=== PATIENT | male | born 1960 | race Caucasian/White ===

== ENCOUNTER 2018-06-26 13:55 | Observation (INO) | payer MEDICAID ==
[~2018-06-26] VITALS: Ht 170.2 cm; Wt 121.8 kg
--- NOTE | ~2018-06-26 | HEMODYNAMI ---
PATIENT:ALTON PARKS MEDICAL RECORD: [id number] : 58 [address] [id number] ADMISSION DATE: 06/26/18 Generatedon:06/27/201813:32 Patient name: ALTON PARKS Patient #: [id number] SSN: : 1960 Date of study: 06/27/2018 Page: Of Hemodynamic Procedure Report Patient Data Patient Demographics Procedure consent was obtained First Name: ALTON Gender: Male Last Name: CHARLY : 1960 Patient #: [id number] Age: 57 year(s) Race: Unknown Additional ID: [id number] Contact details Address: [address] [place], [place] [address] State: [place] City: [place] Zip code: [address] Past Medical History Allergies: No known allergies Admission Admission Data Admission Date: 06/26/2018 Admission Time: 18:38 Room #: 2118 Height (in.): 66.93 BSA: 2.29 (m2) Height (cm.): 170 BMI: 42.15 (kg/m2) Weight (lbs.): 268.52 Weight (kg.): 121.8 Lab Results Lab Result Date: 06/27/2018 Lab Result Time: 5:00 Biochemistry Name Units Result Min Max BUN mg/dl 40 --(----)-* 7 18 Creatinine mg/dl 1.9 --(----)-* 0.6 1.3 CBC Name Units Result Min Max Hematocrit % 32.6 *-(----)-- 42 54 Hemoglobin g/dl 11.9 *-(----)-- 13.5 17.5 Procedure Procedure Types Cath Procedure Diagnostic Procedure [facility] w/Coronaries Sedation Charges Moderate Sedation up to 15 minutes PCI Procedure Coronary Stent Coronary Stent Initial Peripheral Cath Diagnostic Procedure Help Desk Team Leader Peripheral Procedures Renal Arteriogram Procedure Description Procedure Date Procedure Date: 06/27/2018 Procedure Start Time: 13:03 Procedure End Time: 13:22 Procedure Staff Name Function Jimi Corado RN Nuclear Security Officer Vinod Jeffers RN Nurse Nash Fuentes MD Performing Physician Zia Peralta RT Monitor [facility] RT Scrub Procedure Data Cath Procedure Fluoroscopy Diagnostic fluoroscopy Total fluoroscopy Time: 4.9 time: 4.9 min min Diagnostic fluoroscopy Total fluoroscopy dose: 864 dose: 864 mGy mGy Contrast Material Contrast Material Type Amount (ml) Isovue 300 89 Entry Location Entry Primary Successful Side Size Upsize Upsize Entry Closure Succes sful Closure Location (Fr) 1 (Fr) 2 (Fr) Remarks Device Remarks Femoral Right 5 Fr 6 Fr Exoseal artery Short Estimated blood loss: 10 ml Diagnostic catheters Device Type Used For End Catheter Placement MULTIPACK Pigtail 5 Fr Procedure catheter MULTIPACK JL 4.0 5Fr Procedure catheter MULTIPACK 3DRC 5Fr Procedure catheter MULTIPACK 3DRC 5Fr Procedure catheter Procedure Complications No complications Procedure Medications Medication Administration Route Dosage Oxygen etCO2 Nasal cannula 2 l/min Lidocaine 2% added to field 20 Heparin Flush Bag added to field 2 bags (1000units/500ml NS) 0.9% NaCl I.V. 100 ml/hr Versed I.V. 2 mg Fentanyl I.V. 100 mcg Fentanyl I.V. 100 mcg Heparin Bolus I.V. 4000 units Integrilin (Bolus I.V. 11.3 ml 2mg/ml) Versed I.V. 1 mg Plavix P.O. 600 mg Hemodynamics Rest BSA: 2.29 (m2) HGB: 11.9 (g/dl) O2 Consumption: Estimated: 287.95 (ml/min) O2 Co nsumption indexed: Estimated:125.74 (ml/min/m) Heart Rate: 91 (bpm) Pressure Samples Time Site Value (mmHg) Purpose Heart Use Rate(bpm) 13:05 LV 113/5,8 Snapshot 80 Snapshots Pre Cath Intra NCS Post Cath Vital Signs Time Heart Resp SPO2 etCO2 NIBP (mmHg) Rhythm Pain Sedation Rate (ipm) (%) (mmHg) Status Level (bpm) 12:52:08 90 9 97 33 157/91(126) NSR 0 (11) 10(A) , No pain 12:56:30 92 18 95 25.5 133/90(104) NSR 0 (11) 10(A) , No pain 13:00:54 82 17 95 19.5 131/80(103) NSR 0 (11) 10(A) , No pain 13:05:18 80 11 98 30.8 135/82(105) NSR 0 (11) 10(A) , No pain 13:09:44 86 15 98 19.5 114/84(106) NSR 0 (11) 9(A) , No pain 13:13:58 86 12 97 30 121/87(102) NSR 0 (11) 9(A) , No pain 13:18:17 89 13 98 33 137/89(117) NSR 0 (11) 9(A) , No pain 13:22:43 88 16 98 36 127/87(101) NSR 0 (11) 10(A) , No pain Medications Time Medication Route Dose Verified Delivered Reason Notes Effectiveness by by 12:52:39 Oxygen etCO2 2 Nash Herreraie used for Nasal l/min Alfredo Jeffers RN procedure cannula 12:52:46 Lidocaine 2% added 20ml Nash Cao for local to vial Alfredo Fuentes MD anesthetic field 12:52:52 Heparin Flush added 2 Nash Nash used for Bag to bags Alfredo Fuentes MD procedure (1000units/500ml field NS) 12:53:01 0.9% NaCl I.V. 100 Nash Brock Per physician ml/hr Alfredo Jeffers RN 13:00:44 Versed I.V. 2 mg Nash Brock for sedation Alfredo Jeffers RN 13:00:50 Fentanyl I.V. 100 Nash Brock for sedation mcg Alfredo Jeffers RN 13:06:16 Fentanyl I.V. 100 Nash Brock for sedation mcg Alfredo Jeffers RN 13:09:20 Heparin Bolus I.V. 4000 Nash Brock for verif ied units Alfredo Jeffers RN anticoagulation with dr fuentes 13:11:24 Integrilin I.V. 11.3 Nash Brock for waste d (Bolus 2mg/ml) ml Alfredo Jeffers RN antiplatelet 8.7 ml therapy of vial 13:16:38 Versed I.V. 1 mg Nash Brock for sedation Alfredo Jeffers RN 13:22:51 Plavix P.O. 600 Nash Brock for mg Alfredo Jeffers RN hypertension Procedure Log Time Note 12:26:20 Patient Height : 66.93 inches 12:26:26 Patient Weight : 268.52 lbs 12:26:59 Jimi Corado RN sent for patient. Start room use. 12::01 Signed procedure consent form obtained from patient. 12::02 Diagnostic Cath status Elective 12:34:40 Time tracking: Regular hours (M-F 7:00 - 5:00) 12:34:43 Plan of Care:Hemodynamics will remain stable., Cardiac rhythm will remain stable., Comfort level will be maintained., Respiratory function will remain adequate., Patient/ family verbilizes understanding of procedure., Procedure tolerated without complication., Recovers from procedure without complications.. 12:34:49 Patient received from Med II to CCL 1 Alert and oriented. Tansferred to table in Supine position. 12:34:50 Warm blankets applied, and avila hugger turned on for patient comfort. 12:34:51 ECG and BP/O2 sat monitors applied to patient. 12:34:51 Correct patient and procedure confirmed by team. 12:34:53 Pre-op teaching completed and patient verbalized understanding. 12:34:53 Pre-procedure instructions explained to patient. 12:34:54 Family in waiting room. 12:34:55 Patient NPO since Midnight. 12:35:02 Patient allergic to No known allergies 12:35:06 Is the patient allergic to Iodine/contrast media? No. 12:35:07 Is patient on blood thinner?Yes 12:35:09 ACC The patient was administered the following blood thiners within the last 24 hours: ACCPlavix 12:35:11 Patient diabetic? No. 12:35:13 Previous problem with sedation/anesthesia? No ? 12:35:15 Snore? Yes 12:35:16 Sleep apnea? Yes 12:35:17 Opens mouth fully? Yes 12:35:17 Deviated septum? No 12:35:18 Sticks out tongue? Yes 12:35:21 Airway obstruction? No ? 12:35:23 Dentures? No ? 12:49:48 Pre procedure: right dorsailis pedis pulse 2+ Normal; easily identifiable; not easily obliterated 12:49:50 Modified Harjit's test Ulnar > 7 seconds. 12:49:53 Patient pain scale 0/10 ?. 12:49:58 IV patent on arrival in right hand with 0.9% NaCl at [facility]. 12:50:24 Lab Result : Hemoglobin 11.9 g/dl 12:50:24 Lab Result : Hematocrit 32.6 % 12:50:24 Lab Result : BUN 40 mg/dl 12:50:24 Lab Result : Creatinine 1.9 mg/dl 12:50:26 Lab results completed and on chart. 12:50:29 Right groin area was prepped with chlora-prep and draped in sterile fashion 12:50:30 Sharps counted by scrub and verified by R.N. 12:50:30 Alarms reviewed by R. N. 12:50:32 Use device set Femoral Dx 12:50:33 ACIST Syringe (42415) opened to sterile field. 12:50:34 Medline Cath Pack ([id number]) opened to sterile field. 12:50:34 Bag Decanter (2002S) opened to sterile field. 12:50:35 ACIST Manifold (13654) opened to sterile field. 12:50:35 ACIST Hand Control (45429) opened to sterile field. 12:50:36 Tegaderm 4 x 4 (1626W) opened to sterile field. 12:50:37 DIAGNOSTIC Multipack 5Fr catheter set (IH5165) opened to sterile field. 12:50:38 DIAGNOSTIC WIRE .035 260cm J wire (253072) opened to sterile field. 12:50:40 SHEATH 5FR [place] (XNP342) opened to sterile field. 12:50:44 Vital chart was started 12:50:45 Baseline sample Acquired. 12:50:48 Rhythm: sinus rhythm 12:50:49 Full Disclosure recording started 12:52:39 Oxygen 2 l/min etCO2 Nasal cannula was administered by Vinod Jeffers RN; used for procedure; 12:52:46 Lidocaine 2% 20ml vial added to field was administered by Nash Fuentes MD; for local anesthetic; 12:52:52 Heparin Flush Bag (1000units/500ml NS) 2 bags added to field was administered by Nash Fuentes MD; used for procedure; 12:53:01 0.9% NaCl 100 ml/hr I.V. was administered by Vinod Jeffers RN; Per physician; 12:57:33 Final Timeout: patient, procedure, and site verified with staff and physician. All members of the team are in agreement. 12:57:33 --------ALL STOP TIME OUT------ 12:57:33 Physician arrived 12:57:35 Right groin site verified by team. 12:57:38 Fire Safety Assessment: A--An alcohol-based skin anteseptic being used preoperatively., C--Open oxygen or nitrous oxide is being used., D--An ESU, laser, or fiber-optic light is being used. 12:57:46 Physical assessment completed. ASA score P 2 - A patient with mild systemic disease as per Nash Fuentes MD. 12:57:49 Sedation plan: IV Moderate Sedation Medication:Versed, Fentanyl 13:00:44 Versed 2 mg I.V. was administered by Vinod Jeffers RN; for sedation; 13:00:50 Fentanyl 100 mcg I.V. was administered by Vinod Jeffers RN; for sedation; 13:03:33 Zero performed for pressure channel P1 13:03:47 Procedure started. 13:03:53 Local anesthetic to right femoral artery with Lidocaine 2% by Nash Fuentes MD.INITIAL ACCESS ONLY 13:04:05 A 5 Fr sheath was inserted into the Right Femoral artery 13:04:57 A MULTIPACK Pigtail 5 Fr catheter was advanced over the wire and used for Procedure. 13:05:05 LV gram done using BOBO 13:05:07 Injector settings: Ml/sec: 10, Volume: 20, 13:05:23 LV hemodynamics recorded. 13:05:26 EF : 60 % 13:05:29 Catheter exchanged over wire. 13:05:35 A MULTIPACK JL 4.0 5Fr catheter was advanced over the wire and used for Procedure. 13:06:04 LCA angiography performed. 13:06:16 Fentanyl 100 mcg I.V. was administered by Vinod Jeffers RN; for sedation; 13:07:03 Catheter exchanged over wire. 13:07:07 A MULTIPACK 3DRC 5Fr catheter was advanced over the wire and used for Procedure. 13:07:27 RCA angiography performed. 13:07:55 INFLATOR Merit BasixCompak (DQ6519) opened to sterile field. 13:07:55 CHOICE PT Extra Support 182cm wire ([id number]) opened to sterile field. 13:07:57 SHEATH 6FR [place] (TIY653) opened to sterile field. 13:08:00 Catheter removed. 13:08:07 Sheath upsized to a 6 Fr Short. 13:09:20 Heparin Bolus 4000 units I.V. was administered by Vinod Jeffers RN; for anticoagulation; verified with dr fuentes 13:09:39 GUIDE 6FR AR 2.0 SH catheter ([id number]) opened to sterile field. 13:10:37 6 Fr AR 2 SH guide catheter was inserted over the wire 13:10:44 CHOICE wire advanced. 13:10:46 Wire advanced across lesion. 13:11:24 Integrilin (Bolus 2mg/ml) 11.3 ml I.V. was administered by Vinod Jeffers RN; for antiplatelet therapy; wasted 8.7 ml of vial 13:12:27 Place stent Inflation Number: 1 A TANMAY RX 3.5 x 15 stent ([id number]) was prepped and advanced across the Dist RCA. The stent was deployed at 13 KAMERON for 0:10 (min:sec). 13:12:45 Inflation number: 1 The stent balloon was then re-inflated across the Mid RCA to 13 KAMERON for 0:10 (min:sec). 13:13:00 Stent catheter was removed intact over wire. 13:13:32 Place stent Inflation Number: 2 A TANMAY RX 3.5 x 15 stent ([id number]) was prepped and advanced across the Mid RCA. The stent was deployed at 15 KAMERON for 0:10 (min:sec). 13:14:36 Stent catheter was removed intact over wire. 13:15:29 Place stent Inflation Number: 1 A TANMAY RX 3.5 x 18 stent ([id number]) was prepped and advanced across the Prox RCA. The stent was deployed at 17 KAMERON for 0:10 (min:sec). 13:15:45 Stent catheter was removed intact over wire. 13:15:47 Wire removed. 13:15:48 Guide catheter removed. 13:16:03 A MULTIPACK 3DRC 5Fr catheter was advanced over the wire and used for Procedure. 13:16:38 Versed 1 mg I.V. was administered by Vinod Jeffers RN; for sedation; 13:17:36 Right renal angiography performed. 13:17:38 Left renal angiography performed. 13:17:49 Catheter removed. 13:17:56 EXOSEAL 6Fr (EX600) opened to sterile field. 13:18:04 Sheath removed intact; hemostasis achieved with Exoseal to the Right Femoral artery. 13:18:06 Procedure ended.(Physican Out) 13:18:23 Fluoroscopy time 04.90 minutes. 13:18:27 Fluoroscopy dose: 864 mGy 13:18: Flurop Dose total: 864 13:19:35 Contrast amount:Isovue 300 89ml. 13:19:38 Sharps counted by scrub and verified by R.N. 13:19:40 Insertion/operative site no bleeding no hematoma. 13:19:42 Post-op/insertion site Right Femoral artery dressed using a 4 x 4 and Tegaderm. 13:19:46 Post right femoral artery:stable, soft, clean and dry 13:19:47 Post Procedure Pulses reassessed and unchanged 13:19:49 Post-procedure physical assessment completed. ASA score P 2 - A patient with mild systemic disease as per Nash Fuentes MD. 13:19:51 Post procedure rhythm: unchanged. 13:19:54 Estimated blood loss: 10 ml 13:20:23 Patient needs reinforcement of post procedure teaching. 13:20:23 Post procedure instruction explained to patient.Patient verbalizes understanding. 13:20:51 Procedure type changed to Cath procedure, Diagnostic procedure, LHC, LHC w/Coronaries, Sedation Charges, Moderate Sedation up to 15 minutes, PCI procedure, Coronary Stent, Coronary Stent Initial, Peripheral Cath Diagnostic Procedure, Help Desk Team Leader Peripheral Procedures, Renal Arteriogram 13:22:15 Procedure and supply charges have been captured, reviewed, submitted and are correct. 13:22:18 Procedure Complication : No complications 13:22:20 See physician's report for complete and final results. 13:22:20 Vital chart was stopped 13:22:22 Report given to Pre/Post Procedure Room. 13:22:24 Patient transfered to Pre/Post Procedure Room with Stretcher. 13:22:26 Full Disclosure recording stopped 13:22:26 Procedure ended. 13:22:30 End room use (Document Last) 13:22:51 Plavix 600 mg P.O. was administered by Vinod Jeffers RN; for hypertension; 13:31:45 Femstop placed over the right femoral artery at 147 mmHg. Hemostasis achieved. Intervention Summary Intervention Notes Time ActionType Lesion and Equipment Used Action# Pressure Duration Attributes 13:12:27 Place stent Dist RCA TANMAY RX 3.5 x 1 13 00:10 15 stent ([id number]) 13:12:45 Reinflate Mid RCA TANMAY RX 3.5 x 1 13 00:10 stent 15 stent balloon ([id number]) 13:13:32 Place stent Mid RCA TANMAY RX 3.5 x 2 15 00:10 15 stent ([id number]) 13:15:29 Place stent Prox RCA TANMAY RX 3.5 x 1 17 00:10 18 stent ([id number]) Device Usage Item Name Manufacture Quantity Catalog Number Hospital Part Current M inimal Lot# / Charge Number Stock Stock Serial# Code ACIST Syringe Acist 1 99592 404608 990862 473478 2 0 (23154) Medical Systems Inc Bag Decanter Microtek 1 2001S 982834 40732 000607 5 (2001S) Medical Inc. Medline Cath Medline 1 [id number] 419337 16736 333491 5 Pack ([id number]) ACIST Hand Acist 1 72104 820869 607006 968862 5 Control Medical (00229) Systems Inc ACIST Manifold Acist 1 21889 947811 861390 746067 5 (81102) Medical Systems Inc Tegaderm 4 x 4 3M 1 1626W 160494 003921 352326 5 (1626W) DIAGNOSTIC Cardinal 1 [id number] 881596 19867 013782 3 0 Multipack 5Fr Health catheter set (PU8813) DIAGNOSTIC St Hubert 1 704242 341268 172316 982800 3 0 WIRE .035 260cm J wire (502706) SHEATH 5FR Terumo 1 SVI314 370170 825230 234360 5 [place]anchester (USK183) MULTIPACK Cardinal 1 181688 5 Pigtail 5 Fr Health catheter MULTIPACK JL Cardinal 1 234823 5 4.0 5Fr Health catheter MULTIPACK 3DRC Cardinal 1 645886 5 5Fr catheter Health CHOICE PT Mayetta 1 [id number] 665205 277261 759283 5 Extra Support Scientific 182cm wire ([id number]) INFLATOR Merit Merit 1 QX0877 234880 322136 921845 1 5 Kang Hui Medical Instrument (OQ6137) SHEATH 6FR Terumo 1 HBC634 858801 466018 907967 4 0 Blanchester (UQR731) GUIDE 6FR AR Medtronic 1 [id number] 241977 93653 225701 1 2.0 SH catheter ([id number]) TANMAY RX 3.5 x Medtronic 2 [id number] 223123 6707715 914087 5 [id number] 15 stent [id number] ([id number]) TANMAY RX 3.5 x Medtronic 1 [id number] 703889 6384195 178288 5 [id number] 18 stent ([id number]) EXOSEAL 6Fr Cardinal 1 EX600 598445 929526 757734 1 0 (EX600) Health Signature Audit [place] Stage Time Signature Unsigned Intra-Procedure 06/27/2018 Zia Peralta RT(R) 1:25:12 PM RT(R) 06/27/2018 1:30:14 PM Intra-Procedure 06/27/2018 Zia Peralta 1:31:57 PM RT(R) Signatures Monitor : Zia Peralta RT Signature : Date : Time : [facility] [address] [place] [address]
[2018-06-26] MEDS ORDERED: LASIX40 MG PO ×2 (14:16→21:02)
[2018-06-26] MEDS ORDERED: ZYLOPRIM300 MG PO (14:17)
[2018-06-26] MEDS ORDERED: PREDNISONE20 MG PO (14:17)
[2018-06-26] MEDS ORDERED: IBUPROFEN800 MG PO (14:17)
[2018-06-26] MEDS ORDERED: FLOMAX0.4 MG PO (14:19)
[2018-06-26] MEDS ORDERED: COCHICINE (14:19)
[2018-06-26] MEDS ORDERED: NEURONTIN 300300 MG PO (14:19)
[2018-06-26] MEDS ORDERED: LIPITOR20 MG PO (14:19)
[2018-06-26] MEDS ORDERED: OMEPRAZOLE20 M1 PO (14:20)
[2018-06-26] MEDS ORDERED: LISINOPRIL-HCT1 EAC8 PO (14:20)
[2018-06-26] MEDS ORDERED: ULTRAM50 MG PO (14:20)
[2018-06-26] MEDS ORDERED: K-DUR20 MEQ PO (14:21)
[2018-06-26] MEDS ORDERED: NORVASC5 MG PO (14:22)
[2018-06-26] MEDS ORDERED: ISORDIL40 MG PO (14:22)
[2018-06-26 14:53] LABS: BASOPHILS 0.8 % (0-2); EOSINOPHILS 6.7 % (0-7); HEMATOCRIT 35.8 % (42.0-54.0); HEMOGLOBIN 13.1 g/dL (13.5-17.5); LYMPHOCYTES 26.5 % (15-50); MCH 32.4 pg (26.0-34.0); MCHC 36.6 g/dL (31.0-37.0); MCV 88.6 fL (80.0-100.0); MEAN PLATELET VOLUME 8.9 fL (7.4-10.4); MONOCYTES 11.1 % (2-11); NEUTROPHILS 53.9 % (40-80); PLATELET COUNT 160 10x3/uL (130-400); RBC 4.04 10x6/uL (4.20-6.10); RDW 13.2 % (11.5-14.5); WBC 5.1 10x3/uL (4.8-10.8)
[2018-06-26 15:29] LABS: ALBUMIN 3.7 g/dL (3.4-5.0); ALKALINE PHOSPHATASE 75 U/L (46-116); ALT (SGPT) 71 U/L (10-68); BILIRUBIN - TOTAL 0.99 mg/dL (0.2-1.3); CALC OSMOLALITY 298 mosm/kg (275-300); CALCIUM 8.1 mg/dL (8.5-10.1); CARBON DIOXIDE 28.5 mmol/L (21.0-32.0); CHLORIDE - SERUM 101 mmol/L (98-107); CKMB 4.8 U/L (0.0-3.6); CREATINE KINASE 218 UL (21-232); CREATININE - SERUM 2.5 mg/dL (0.6-1.3); GLUCOSE 161 mg/dL (74-106); PRO BNP 24 pg/mL (0-125); PROTEIN - SERUM 6.8 g/dL (6.4-8.2); SODIUM 142 mmol/L (136-145); UREA NITROGEN 48 mg/dL (7-18); eGFR NON AFRICAN AMERICAN 28 mL/min (90-120)
[2018-06-26 15:59] LABS: POTASSIUM - SERUM 2.9 mmol/L (3.5-5.1); TROPONIN-I < 0.017 ng/mL (0.000-0.060)
--- NOTE | 2018-06-26 19:44 | NUR ---
REPORT RECEIVED FROM NIGEL BURNETT
[2018-06-26 20:00] VITALS: BP 135/75
--- NOTE | 2018-06-26 20:15 | NUR ---
ARRIVED TO FLOOR VIA WHEELCHAIR, ACCOMPANIED BY HOSPITAL STAFF AND . ORIENTED TO UNIT AND PLACED ON TELEMETRY. PLAN OF CARE DISCUSSED. CALL LIGHT IN REACH. SEE NURSE ASSESSMENT.
--- NOTE | 2018-06-26 20:54 | NUR ---
DR. GENET MUNOZ, AWAITING CALL BACK
[2018-06-26] MEDS ORDERED: LASIX80 MG PO (21:03)
[2018-06-26 22:11] VITALS: BMI 42.1
[2018-06-26 23:13] LABS: CKMB 3.4 U/L (0.0-3.6); CREATINE KINASE 196 UL (21-232); TROPONIN-I 0.016 ng/mL (0.000-0.060)
[2018-06-27 00:50] VITALS: BP 118/87
--- NOTE | 2018-06-27 04:00 | NUR ---
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 WILL CONTINUE WITH PLAN OF CARE.
[2018-06-27 05:15] LABS: HEMATOCRIT 32.6 % (42.0-54.0); HEMOGLOBIN 11.9 g/dL (13.5-17.5); LYMPHOCYTES 27.6 % (15-50); MCH 32.6 pg (26.0-34.0); MCHC 36.5 g/dL (31.0-37.0); MCV 89.3 fL (80.0-100.0); MEAN PLATELET VOLUME 8.6 fL (7.4-10.4); NEUTROPHILS 60.6 % (40-80); PLATELET COUNT 155 10x3/uL (130-400); RBC 3.65 10x6/uL (4.20-6.10); RDW 13.9 % (11.5-14.5); WBC 4.1 10x3/uL (4.8-10.8)
[2018-06-27 05:35] VITALS: BP 150/89
[2018-06-27 05:35] LABS: CALC OSMOLALITY 300 mosm/kg (275-300); CALCIUM 7.7 mg/dL (8.5-10.1); CARBON DIOXIDE 25.5 mmol/L (21.0-32.0); CHLORIDE - SERUM 108 mmol/L (98-107); CREATINE KINASE 192 UL (21-232); CREATININE - SERUM 1.9 mg/dL (0.6-1.3); GLUCOSE 143 mg/dL (74-106); SODIUM 145 mmol/L (136-145); TROPONIN-I < 0.017 ng/mL (0.000-0.060); UREA NITROGEN 40 mg/dL (7-18); eGFR NON AFRICAN AMERICAN 39 mL/min (90-120)
[2018-06-27 05:36] LABS: POTASSIUM - SERUM 3.4 mmol/L (3.5-5.1)
--- NOTE | 2018-06-27 07:35 | NUR ---
ASSESSMENT DONE. DENIES NEEDS.
[2018-06-27 08:17] VITALS: BP 143/92
--- NOTE | 2018-06-27 10:47 | NUR ---
TELEMETRY SR 87. AT BS. CALL LIGHT IN REACH. WILL CONT. PLAN OF CARE.
--- NOTE | 2018-06-27 11:45 | NUR ---
REVIEWED AND AGREE WITH ASSESMENT.
[2018-06-27 12:00] VITALS: BP 139/83
--- NOTE | 2018-06-27 12:29 | NUR ---
TO CHEMICAL PROCESSING SUPERVISOR PER BED
--- NOTE | 2018-06-27 13:26 | HP ---
PATIENT: ALTON PARKS MEDICAL RECORD: [id number] ACCOUNT: [id number] LOCATION:[facility] D.2118 : 58 ADMISSION DATE: 06/26/18 PCP: NANCY DE LEÓN MD HISTORY AND PHYSICAL EXAMINATION DIAGNOSES: 1. Angina. 2. Renal insufficiency. 3. Hypertension. HISTORY OF PRESENT ILLNESS: This is a gentleman with only history of a cardiac catheterization in the past, but no history of cardiac intervention has been having increasing episodes of chest pain. He is followed by the [facility] at the [facility] in [place]. He was set for cardiac catheterization yesterday; however, they did not do this secondary to renal dysfunction. His creatinine was about approximately 2.3. He has been on over 100 mg of Lasix a day. He was clearly dehydrated. We hydrated him. His creatinine is now under 2. He continues to have episodes of chest pain. PHYSICAL EXAMINATION: GENERAL APPEARANCE: Well-nourished, well-developed, appears stated age. Level of distress, comfortable. PSYCHIATRIC: Mental status, alert, normal affect. Orientation, oriented to time, place and person. EYES: Lids and conjunctiva, noninjected. No discharge, no pallor. ENT: Lips, teeth, gums, normal dentition. Oropharynx, no cyanosis, no pallor. NECK: Carotid arteries, bilateral normal upstroke, no bruits, no thrills. JUGULAR VEINS: No jugular venous pressure or distention. CERVICAL LYMPH NODES: Nontender, nonenlarged. THYROID: Not enlarged. Nontender. No nodules. LUNGS: Respiratory effort, unlabored. CHEST: Normal curvature. No thoracic deformity. No chest wall tenderness. Percussion, resonant. Auscultation, clear. No wheezes, no rales, no rhonchi. CARDIOVASCULAR: Precordial exam, nondisplaced. No heaves or pericardial thrills. Rate and rhythm, regular. Heart sounds, normal S1, normal S2. No S3, no gallop, no rub. Systolic murmur, not heard. Diastolic murmur, not heard. EXTREMITIES: No cyanosis, no edema. Peripheral pulses, full and equal in all extremities, except as noted. No bruits appreciated. ABDOMEN: Soft, nondistended. Normal aorta. No bruit. Nontender. No masses. Liver, nontender, no hepatomegaly. Spleen, nontender, no splenomegaly. MUSCULOSKELETAL: No joint tenderness. No joint swelling. No erythema. NEUROLOGICAL: Normal gait, normal strength, normal tone. SKIN: Warm and dry. OVERALL IMPRESSION: Chest pain compatible with angina, renal insufficiency has markedly improved. We will proceed with coronary angiography. Further care depends upon findings of the angiography. TRANSINT:[id number] Voice Confirmation ID: [id number] DOCUMENT ID: [id number] HISTORY AND PHYSICAL [id number] ALTON PARKS, NANCY MACKENZIE at 1326 CC: [id number] DICTATION DATE: 06/27/18 0838 BACK SHOE CUTTER: 06/27/18 0904 ADM IN [facility] [address] [place] [address]
[2018-06-27] MEDS ORDERED: PLAVIX75 MG PO (13:41)
[2018-06-27] MEDS ORDERED: BAYER CHEWABLE81 MG PO (13:41)
--- NOTE | 2018-06-27 13:50 | NUR ---
FEMSTOP IN PLACE TO RIGHT GROIN. NO BLEEDING/HEMATOMA NOTED. RIGHT PEDAL PULSE PALPABLE.
--- NOTE | 2018-06-27 14:20 | NUR ---
VSS. RIGHT GROIN FEMSTOP IN PLACE. NO BLEEDING/HEMATOMA NOTED.
--- NOTE | 2018-06-27 14:34 | NUR ---
STARTED TO WEAN FEMSTOP. DECREASED PRESSURE TO 140mmHg. TOLERATING WELL. RIGHT PEDAL PULSE PALPABLE. FAMILY AT BEDSIDE
--- NOTE | 2018-06-27 14:50 | NUR ---
FEMSTOP DECREASED TO 120mmHg. TOLERATING WELL. NO BLEEDING/HEMATOMA NOTED. RIGHT PEDAL PULSE PALPABLE. VSS.
--- NOTE | 2018-06-27 15:05 | NUR ---
RIGHT GROIN FEMSTOP DECREASED TO 100mmHg. PT TOLERATING WELL. NO NEW BLEEDING/HEMATOMA NOTED. OLD HEMATOMA NOTED TO RIGHT GROIN MARKED. WILL MONITOR.
--- NOTE | 2018-06-27 15:17 | NUR ---
RIGHT GROIN FEMSTOP DEC TO 80mmHg. TOLERATING WELL. NO NEW BLEEDING/HEMATOMA NOTED. VSS. FAMILY AT BEDSIDE. DR. DE LEÓN ROUNED AND SPOKE WITH PT AND PT'S FAMILY.
--- NOTE | 2018-06-27 15:30 | NUR ---
FEMSTOP DEC TO 60 mmHg. TOLERATING WELL. NO NEW BLEEDING/HEMATOMA. VSS. RIGHT PEDAL PULSE PALPBALE.
--- NOTE | 2018-06-27 15:45 | NUR ---
FEMSTOP DEC TO 40mmHg. TOLERATING WELL. NO NEW BLEEDING/HEMATOMA NOTED. RIGHT PEDAL PULSE PALPABLE. VSS.
--- NOTE | 2018-06-27 15:56 | NUR ---
PT C/O ACHING PAIN IN BACK FROM LYING FLAT. WILL GIVE PAIN MEDICATION ORDERED.
--- NOTE | 2018-06-27 16:15 | NUR ---
FEMSTOP WEANED DOWN TO 20mmHg. TOLERATING WELL. VSS. NO NEW BLEEDING/HEMATOMA NOTED. PT REPORTS PAIN IS BETTER. RATES IT A 3/10.
--- NOTE | 2018-06-27 16:28 | NUR ---
FEMSTOP OFF AT THIS TIME. DRESSING APPLIED TO RIGHT GROIN. NO NEW BLEEDING/HEMATOMA NOTED. WILL MONITOR AND THEN START INCREASING HEAD OF BED TOLERATED.
--- NOTE | 2018-06-27 16:40 | NUR ---
RIGHT GROIN DRESSING C/D/I. NO S/S OF HEMATOMA NOTED. 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 PT'S AT BEDSIDE AND EDUCATED HER ON WHAT TO WATCH FOR IF PT DEVELOPS A HEMATOMA AT HOME. MARKED OLD BRUISE SITE. PT'S HEAD OF BED SLOWLY INCREASED TO 30 DEGREES. RIGHT GROIN IS STABLE. PT SET UP WITH SANDWICH TRAY AND DRINK.
--- NOTE | 2018-06-27 16:58 | NUR ---
PT TOLERATED SANDWICH AND DRINK. DENIES NAUSEA. RIGHT HAND PIV D/C'D WITH CATH TIP INTACT. PT TOLERATED WELL. PT INSTRUCTED TO GET UP TO SIDE OF BED AND GET DRESSED. PT'S AT BEDSIDE TO ASSIST.
--- NOTE | 2018-06-27 17:14 | NUR ---
DISCUSSED DISCHARGE INSTRUCTIONS WITH PT AND PT'S FAMILY. THEY VOICED UNDERSTANDING. PT TO COME BACK SATURDAY FOR CARDIAC STENTS. DISCUSSED WHAT TO DO PRIOR TO ARRIVAL AND WHAT TIME TO ARRIVE SATURDAY MORNING. THEY VOICED UNDERSTANDING.
--- NOTE | 2018-06-27 17:16 | NUR ---
PT TO RESTROOM. VOIDED WITHOUT DIFFICULTY. PT TAKEN OUT TO VEHICLE BY WHEELCHAIR. NO S/S OF DISTRESS NOTED. ALL BELONGINGS IN HAND.
[2018-06-30 09:04] VITALS: BP 148/89; Ht 170.2 cm; Wt 121.8 kg
--- NOTE | 2018-07-01 11:18 | DS ---
PATIENT:ALTON PARKS :58 MEDICAL RECORD: [id number] DISCHARGE SUMMARY ADMISSION DATE: 06/26/18 DISCHARGE DATE: 06/27/18 DATE OF SERVICE: 06/27/2018 DIAGNOSES: 1. Angina. 2. Percutaneous transluminal coronary angioplasty stent of right coronary artery this admission. 3. Hypertension. 4. Hyperlipidemia. 5. Renal insufficiency. HOSPITAL COURSE: This is a gentleman who presents with anginal symptomatology, found to have significant stenosis of the RCA, underwent successful PTCA stent of the RCA, discharged home with addition of aspirin and Plavix to his medical regimen. He will be brought back next week for PTCA stent of the LAD and circumflex. TRANSINT:[id number] Voice Confirmation ID: [id number] DOCUMENT ID: [id number] NANCY DE LEÓN MD at 1118 CC: [id number] DICTATION DATE: 06/27/18 1324 IMMIGRATION SERVICES OFFICER: 06/27/18 2342 DIS IN 06/27/18 [facility] [address] [place] [address]
--- NOTE | 2018-07-01 11:18 | OP ---
PATIENT NAME: ALTON PARKS MEDICAL RECORD: [id number] :58 LOCATION:[facility] ADMISSION DATE:06/26/18 SURGEON: NANCY DE LEÓN MD DATE OF OPERATION: 06/27/2018 ADDENDUM Bilateral selective renal angiography was performed. 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 No pressure damping at the ostium problem. The left renal artery is a solitary artery off the aorta with no significant pressure damping at the ostium. No significant renal artery stenosis. TRANSINT:[id number] Voice Confirmation ID: [id number] DOCUMENT ID: [id number] NANCY DE LEÓN MD at 1118 CC: [id number] DICTATION DATE: 06/27/18 1325 OPTOMETRY ASSISTANT: 06/27/18 211 DIS IN 06/27/18 [place] [id number] [place] [address]
--- NOTE | 2018-07-01 11:18 | OP ---
PATIENT NAME: ALTON PARKS MEDICAL RECORD: [id number] :58 LOCATION:[facility]03 ADMISSION DATE:06/26/18 SURGEON: NANCY DE LEÓN MD DATE OF OPERATION: 06/27/2018 PROCEDURES: 1. PTCA and stent to the RCA. 2. Left heart catheterization. 3. Selective coronary angiography. 4. Left ventriculogram. INDICATIONS: Angina and coronary artery disease. PROCEDURE IN DETAIL: After informed consent was obtained and after a detailed description of risks, benefits as well as alternative therapies, the patient elected to proceed with angiogram and angioplasty. The right femoral area was prepped and draped in normal sterile fashion. Right femoral artery was cannulated via modified Seldinger technique with placement of 6-Slovenian sheath. All catheters were exchanged through this sheath. FINDINGS: The left ventriculogram was performed in the standard 30-degree BOBO view reveals good cardiac wall motion throughout all segments. Overall ejection fraction estimated at 60%. SELECTIVE CORONARY ANGIOGRAPHY: 1. Left main has no significant angiographic disease. 2. Left anterior descending has a long area of at least 70% stenosis in the proximal vessel. 3. Left circumflex has a long area of at least 80% stenosis in the mid distal vessel. 4. Right coronary has 3 discrete 80% stenoses at the ostium, mid, and mid distal vessel. PTCA AND STENT OF THE RCA: Stents used were 3.5 x 15, 3.5 x 15, 3.5 x 18; all Musa stents. Result was 0% residual stenosis. OVERALL IMPRESSION: Successful percutaneous transluminal coronary angioplasty and stent of the RCA going from 80% initial stenosis times 3 to 0% residual. TRANSINT:[id number] Voice Confirmation ID: [id number] DOCUMENT ID: [id number] NANCY DE LEÓN MD at 1118 CC: [id number] DICTATION DATE: 06/27/18 1324 WIREWORKER SUPERVISOR: 06/27/182100 DIS IN 06/27/18 [place] [id number]
== END 2018-06-27 17:16 | disposition home or self-care (01) ==
LOC: D.ER 13:55 → D.M2 18:38 → D.CLR 18:38 → D.EDHOLD 18:38 → D.M2 18:38 → OBSVTIME 18:39 → D.M2 19:27 → D.CLR 06-27 14:11
PROVIDERS: Emergency Medicine; ADMIT Internal Medicine Interventional Cardiology
DX: I25.110 Atherosclerotic heart disease of native coronary artery with unstable angina pectoris (principal); I10 Essential (primary) hypertension; N28.9 Disorder of kidney and ureter, unspecified; E86.0 Dehydration

== ENCOUNTER 2018-06-30 08:32 | Outpatient (CLI) | payer MEDICAID ==
--- NOTE | ~2018-06-30 | HEMODYNAMI ---
PATIENT:ALTON PARKS MEDICAL RECORD: [id number] : 58 LOCATION:[facility] ADMISSION DATE: 06/30/18 Generatedon:06/30/201810:07 Patient name: ALTON PARKS Patient #: [id number] SSN: : 1960 Date of study: 06/30/2018 Page: Of Hemodynamic Procedure Report Patient Data Patient Demographics Procedure consent was obtained First Name: ALTON Gender: Male Last Name: CHARLY : 1960 Patient #: [id number] Age: 57 year(s) Race: Unknown Additional ID: [id number] Contact details Address: [facility] [address] State: [place] City: [place] Zip code: [address] Past Medical History Allergies: No known allergies Admission Admission Data Admission Date: 06/30/2018 Admission Time: 8:32 Lab Results Lab Result Date: 06/27/2018 Lab Result Time: 5:00 Biochemistry Name Units Result Min Max BUN mg/dl 40 --(----)-* 7 18 Creatinine mg/dl 1.9 --(----)-* 0.6 1.3 CBC Name Units Result Min Max Hematocrit % 32.6 *-(----)-- 42 54 Hemoglobin g/dl 11.9 *-(----)-- 13.5 17.5 Procedure Procedure Types Cath Procedure Diagnostic Procedure FFR/IVUS Intra-Coronary IVUS Initial Sedation Charges Moderate Sedation up to 15 minutes PCI Procedure Coronary Stent Coronary Stent Initial Procedure Description Procedure Date Procedure Date: 06/30/2018 Procedure Start Time: 9:56 Procedure End Time: 10:06 Procedure Staff Name Function Nash Fuentes MD Performing Physician Sandra Larson RT Monitor Colleen Al RT Scrub Shahrzad Benjamin RT Scrub Jessica Graves RN Nurse Procedure Data Cath Procedure Fluoroscopy Diagnostic fluoroscopy Total fluoroscopy Time: 2.1 time: 2.1 min min Diagnostic fluoroscopy Total fluoroscopy dose: 561 dose: 561 mGy mGy Contrast Material Contrast Material Type Amount (ml) Isovue 300 44 Entry Location Entry Primary Successful Side Size Upsize Upsize Entry Closure Succes sful Closure Location (Fr) 1 (Fr) 2 (Fr) Remarks Device Remarks Femoral Left 6 Fr Exoseal artery Short Estimated blood loss: 10 ml Procedure Complications No complications Procedure Medications Medication Administration Route Dosage 0.9% NaCl I.V. 100 ml/hr Oxygen etCO2 Nasal cannula 2 l/min Lidocaine 2% added to field 20 Heparin Flush Bag added to field 2 bags (1000units/500ml NS) Versed I.V. 2 mg Fentanyl I.V. 50 mcg Versed I.V. 2 mg Fentanyl I.V. 50 mcg Heparin Bolus I.V. 4000 units Hemodynamics Rest HGB: 11.9 (g/dl) Heart Rate: 90 (bpm) Snapshots Pre Cath Intra NCS Post Cath Vital Signs Time Heart Resp SPO2 etCO2 NIBP (mmHg) Rhythm Pain Sedation Rate (ipm) (%) (mmHg) Status Level (bpm) 9:35:22 94 13 98 33.5 186/124(161) NSR 0 (11) 10(A) , No pain 9:40:02 88 13 98 32.7 201/122(156) NSR 0 (11) 10(A) , No pain 9:44:43 94 14 98 33.4 179/101(147) NSR 0 (11) 10(A) , No pain 9:49:16 93 11 98 33.5 166/101(131) NSR 0 (11) 10(A) , No pain 9:53:48 95 15 96 29.6 161/96(124) NSR 0 (11) 10(A) , No pain 9:58:14 96 11 97 31.9 166/92(138) NSR 0 (11) 9(A) , No pain 10:03:50 95 11 98 37.2 154/94(118) NSR 0 (11) 10(A) , No pain Medications Time Medication Route Dose Verified Delivered Reason Notes Effectiveness by by 9:39:25 0.9% NaCl I.V. 100 Nash Obrienyla used for ml/hr Alfredo Graves die cleaner 9:39:32 Oxygen etCO2 2 Nash Jessica used for Nasal l/min Alfredo Grvaes procedure cannula RN 9:39:38 Lidocaine 2% added 20ml Nashray Cao for local to vial Alfredo Fuentes MD anesthetic field 9:39:43 Heparin Flush added 2 Nash Nash used for Bag to bags Alfredo Fuentes MD procedure (1000units/500ml field NS) 9:49:38 Versed I.V. 2 mg Nash Jessica for sedation Alfredo Graves RN 9:49:49 Fentanyl I.V. 50 Nash Jessica for sedation mcg Alfredo Graves RN 9:53:57 Versed I.V. 2 mg Nash Jessica for sedation Alfredo Graves RN 9:54:01 Fentanyl I.V. 50 Nash Jessica for sedation mcg Alfredo Graves RN 9:58:42 Heparin Bolus I.V. 4000 Nash Jessica for verifi ed units Alfredo Graves anticoagulation with Dr. LEX Fuentes Procedure Log Time Note 9:28:32 Diagnostic Cath Status : Elective 9:29:02 Sandra ROSAS(R) sent for patient. Start room use. 9:29:03 Time tracking: Regular hours (M-F 7:00 - 5:00) 9:29:07 Plan of Care:Hemodynamics will remain stable., Cardiac rhythm will remain stable., Comfort level will be maintained., Respiratory function will remain adequate., Patient/ family verbilizes understanding of procedure., Procedure tolerated without complication., Recovers from procedure without complications.. 9:29:26 Patient received from Pre/Post Procedure Room to CCL 2 Alert and oriented. Tansferred to table in Supine position. 9:29:28 Warm blankets applied, and avila hugger turned on for patient comfort. 9:29:28 Correct patient and procedure confirmed by team. 9:29:30 Signed procedure consent form obtained from patient. 9:29:32 ECG and BP/O2 sat monitors applied to patient. 9:32:41 Vital chart was started 9:32:42 Baseline sample Acquired. 9:32:46 Rhythm: sinus rhythm 9:32:48 Full Disclosure recording started 9:34:07 H&P Date Dictated: 06/30/2018 Within 30 days and on chart., H&P Addendum completed by physician on day of procedure. (MUST COMPLETE FOR ALL OUTPATIENTS). 9:34:08 Pre-procedure instructions explained to patient. 9:34:21 Family in waiting room. 9:34:24 Patient NPO since Midnight. 9:34:36 Patient allergic to No known allergies 9:34:39 Is the patient allergic to Iodine/contrast media? No. 9:34:45 Was the patient premedicated? Yes 9:34:46 Is patient on blood thinner?Yes 9:34:49 ACC The patient was administered the following blood thiners within the last 24 hours: ACCPlavix 9:34:51 Patient diabetic? No. 9:34:58 Snore? Yes 9:35:00 Sleep apnea? Yes 9:35:05 Deviated septum? No 9:35:07 Opens mouth fully? No 9:35:09 Sticks out tongue? Yes 9:35:18 Dentures? No ? 9:35:25 IV patent on arrival in left hand with 0.9% NaCl at [facility]. 9:35:36 Lab results completed and on chart. 9:35:41 Left groin area was prepped with chlora-prep and draped in sterile fashion 9:35:42 Alarms reviewed by R. N. 9:35:43 Sharps counted by scrub and verified by R.N. 9:38:00 Pre procedure: left dorsailis pedis pulse 0-Absent 9:39:25 0.9% NaCl 100 ml/hr I.V. was administered by Jessica Graves RN; used for procedure; 9:39:32 Oxygen 2 l/min etCO2 Nasal cannula was administered by Jessica Graves RN; used for procedure; 9:39:38 Lidocaine 2% 20ml vial added to field was administered by Nash Fuentes MD; for local anesthetic; 9:39:43 Heparin Flush Bag (1000units/500ml NS) 2 bags added to field was administered by Nash Fuentes MD; used for procedure; 9:47:39 Zero performed for pressure channel P1 9:48:41 Physician arrived 9:48:41 --------ALL STOP TIME OUT------ 9:48:46 Final Timeout: patient, procedure, and site verified with staff and physician. All members of the team are in agreement. 9:48:49 Left groin site verified by team. 9:48:55 Fire Safety Assessment: A--An alcohol-based skin anteseptic being used preoperatively., C--Open oxygen or nitrous oxide is being used., D--An ESU, laser, or fiber-optic light is being used. 9:48:59 Physical assessment completed. ASA score P 2 - A patient with mild systemic disease as per Nash Fuentes MD. 9:49:03 Sedation plan: IV Moderate Sedation Medication:Versed, Fentanyl 9:49:38 Versed 2 mg I.V. was administered by Jessica Graves RN; for sedation; 9:49:49 Fentanyl 50 mcg I.V. was administered by Jessica Graves RN; for sedation; 9:53:57 Versed 2 mg I.V. was administered by Jessica Graves RN; for sedation; 9:54:01 Fentanyl 50 mcg I.V. was administered by Jessica Graves RN; for sedation; 9:55:41 Use device set Femoral Dx 9:55:44 Procedure started. 9:56:05 Local anesthetic to left femerol artery with Lidocaine 2% by Nash uFentes MD.INITIAL ACCESS ONLY 9:56:14 A 6 Fr Short sheath was inserted into the Left Femoral artery 9:58:42 Heparin Bolus 4000 units I.V. was administered by Jessica Graves RN; for anticoagulation; verified with Dr. Fuentes 9:58:52 choice pt wire advanced. 9:59:37 GUIDE 6FR XBLAD 4.0 catheter ([id number]) opened to sterile field. 9:59:38 Fortuna [place] IVUS Catheter (17323U) opened to sterile field. 9:59:47 SHEATH 6FR [place] (BMD396) opened to sterile field. 9:59:52 INFLATOR Merit BasixCompak (GW1276) opened to sterile field. 10:00:21 Proceeding to intervention. 10:00:29 6 Fr XBLAD4 guide catheter was inserted over the wire 10:00:38 choice ptex wire advanced. 10:00:39 Wire advanced across lesion. 10:00:48 IVUS catheter advanced over wire. 10:00:49 IVUS catheter removed over wire. 10:01:32 Place stent Inflation Number: 1 A TANMAY RX 3.0 x 38 stent ([id number]) was prepped and advanced across the Mid LAD. The stent was deployed at 11 KAMERON for 0:12 (min:sec). 10:03:09 CHOICE PT Extra Support 182cm wire ([id number]) opened to sterile field. 10:03:11 ACIST Syringe (48150) opened to sterile field. 10:03:11 Bag Decanter (2002S) opened to sterile field. 10:03:12 Medline Cath Pack ([id number]) opened to sterile field. 10:03:13 DIAGNOSTIC WIRE .035 260cm J wire (067081) opened to sterile field. 10:03:15 ACIST Hand Control (54755) opened to sterile field. 10:03:16 ACIST Manifold (88517) opened to sterile field. 10:03:17 Tegaderm 4 x 4 (1626W) opened to sterile field. 10:03:28 EXOSEAL 6Fr (EX600) opened to sterile field. 10:03:35 Wire removed. 10:03:36 Guide catheter removed. 10:03:50 Sheath removed intact; hemostasis achieved with Exoseal to the Left Femoral artery. 10:03:54 Procedure ended.(Physican Out) 10:04:06 Fluoroscopy time 02.10 minutes. 10:04:14 Flurop Dose total: 561 10:04:14 Fluoroscopy dose: 561 mGy 10:04:19 Contrast amount:Isovue 300 44ml. 10:04:20 Sharps counted by scrub and verified by R.N. 10:04:23 Insertion/operative site no bleeding no hematoma. 10:04:27 Post-op/insertion site Left Femoral artery dressed using a 4 x 4 and Tegaderm. 10:04:34 Post-procedure physical assessment completed. ASA score P 2 - A patient with mild systemic disease as per Nash Fuentes MD. 10:04:40 Post procedure rhythm: unchanged. 10:04:43 Estimated blood loss: 10 ml 10:04:44 Post procedure instruction explained to patient.Patient verbalizes understanding. 10:05:24 Procedure type changed to Cath procedure, Diagnostic procedure, FFR/IVUS, Intra-Coronary IVUS Initial, Sedation Charges, Moderate Sedation up to 15 minutes, PCI procedure, Coronary Stent, Coronary Stent Initial 10:05:26 Procedure and supply charges have been captured, reviewed, submitted and are correct. 10:06:14 Procedure Complication : No complications 10:06:16 Vital chart was stopped 10:06:17 See physician's report for complete and final results. 10:06:19 Report given to Pre/Post Procedure Room. 10:06:28 Patient transfered to Pre/Post Procedure Room with Stretcher. 10:06:30 Procedure ended. 10:06:30 Full Disclosure recording stopped 10:06:33 End room use (Document Last) Intervention Summary Intervention Notes Time ActionType Lesion and Equipment Used Action# Pressure Duration Attributes 10:01:32 Place stent Mid LAD TANMAY RX 3.0 x 1 11 00:12 38 stent ([id number]) Device Usage Item Name Manufacture Quantity Catalog Number Hospital Part Current M inimal Lot# / Charge Number Stock Stock Serial# Code GUIDE 6FR Cardinal 1 [id number] [id number] 635461 314243 3 XBLAD 4.0 Health catheter ([id number]) Fortuna Fortuna 1 [id number] 053121 750862 788763 8 [place] IVUS Catheter (07405O) SHEATH 6FR Terumo 1 [id number] 880191 903474 626691 4 0 [place] (EZL033) INFLATOR Merit Merit 1 PW4418 961797 487714 453448 1 5 EvoleennmLGC Wireless Medical (ZL7899) TANMAY RX 3.0 x Medtronic 1 [id number] 810133 5564778 240120 5 [id number] 38 stent ([id number]) CHOICE PT [place] 1 [id number] 128016 122309 110847 5 Extra Support Scientific 182cm wire ([id number]) ACIST Syringe Acist 1 70709 977075 862413 229970 2 0 (04571) Medical Systems Inc Bag Decanter Microtek 1 2001S 687487 45935 367866 5 (2001S) Medical Inc. Medline Cath Medline 1 [id number] 537141 08124 123372 5 Pack ([id number]) DIAGNOSTIC [place] 1 026700 022376 367147 732910 3 0 WIRE .035 260cm J wire (147558) ACIST Hand Acist 1 95942 375906 396102 663718 5 Control Medical (53617) Systems Inc ACIST Manifold Acist 1 16358 862933 864772 307962 5 (06567) Medical Systems Inc Tegaderm 4 x 4 3M 1 1626W 068493 631714 571310 5 (1626W) EXOSEAL 6Fr Cardinal 1 EX600 465763 487440 136626 1 0 (EX600) Health Signature Audit [place] Stage Time Signature Unsigned Intra-Procedure 06/30/2018 Sandra Larson 10:07:21 AM RT(R) Signatures Monitor : Sandra Larson Signature : RT Date : Time : [place] [id number] [place] [id number]
[~2018-06-30 08:32] MED LIST: BAYER CHEWABLE81 MG PO; COCHICINE; FLOMAX0.4 MG PO; IBUPROFEN800 MG PO; ISORDIL40 MG PO; K-DUR20 MEQ PO; LASIX40 MG PO; LASIX80 MG PO; LIPITOR20 MG PO; LISINOPRIL-HCT1 EAC8 PO; NEURONTIN 300300 MG PO; NORVASC5 MG PO; OMEPRAZOLE20 M1 PO; PLAVIX75 MG PO; PREDNISONE20 MG PO; ULTRAM50 MG PO; ZYLOPRIM300 MG PO
[2018-06-30 09:18] LABS: BASOPHILS 0.9 % (0-2); EOSINOPHILS 8.8 % (0-7); HEMATOCRIT 32.6 % (42.0-54.0); HEMOGLOBIN 11.8 g/dL (13.5-17.5); IMMATURE GRANULOCYTES 1.2 % (0-5); MCH 31.9 pg (26.0-34.0); MCHC 36.2 g/dL (31.0-37.0); MCV 88.1 fL (80.0-100.0); MEAN PLATELET VOLUME 8.9 fL (7.4-10.4); MONOCYTES 6.7 % (2-11); NEUTROPHILS 62.4 % (40-80); PLATELET COUNT 147 10x3/uL (130-400); RDW 13.3 % (11.5-14.5); WBC 5.8 10x3/uL (4.8-10.8)
[2018-06-30 09:48] LABS: ANION GAP 17.3 mmol/L (8-16); CALCIUM 9.4 mg/dL (8.5-10.1); CREATININE - SERUM 1.5 mg/dL (0.6-1.3); POTASSIUM - SERUM 3.3 mmol/L (3.5-5.1)
--- NOTE | 2018-07-01 11:19 | OP ---
PATIENT NAME: ALTON PARKS MEDICAL RECORD: [id number] :58 LOCATION:D.CAT ADMISSION DATE: SURGEON: NANCY DE LEÓN MD DATE OF OPERATION: 06/30/2018 DATE OF SERVICE: 06/30/2018 PROCEDURES: 1. PTCA stent LAD. 2. Selective coronary angiography. INDICATION: Angina and coronary artery disease. PROCEDURE IN DETAIL: After informed consent was obtained and after a detailed description of the risks, benefits as well as alternative therapies, the patient elected to proceed with angiogram and angioplasty. The left femoral area was prepped and draped in normal sterile fashion. Left femoral artery was cannulated via modified Seldinger technique with placement of 6-Somali sheath. All catheters exchanged through this sheath. FINDINGS: The left circumflex is diffusely diseased, but there is no discrete flow-limiting stenosis. Left anterior descending has a long area of 80% stenosis confirmed by intravascular ultrasound through the proximal vessel. This was stented with a 3.0 x 38 mm Musa stent. Result was 0% residual stenosis. OVERALL IMPRESSION: Successful percutaneous transluminal coronary angioplasty stent of the left anterior descending going from greater than 80% initial stenosis to 0% residual. TRANSINT:[id number] Voice Confirmation ID: [id number] DOCUMENT ID: [id number] NANCY DE LEÓN MD at 1119 CC: [id number] DICTATION DATE: 06/30/18 1007 BASTING PULLER: 06/30/18 1040 DEP CLI 06/30/18 [place] [id number] [place] [id number]
== END 2018-06-30 14:20 | disposition home or self-care (01) ==
LOC: D.CATH 08:32
PROVIDERS: Internal Medicine Interventional Cardiology
DX: I25.119 Atherosclerotic heart disease of native coronary artery with unspecified angina pectoris (principal); Z01.812 Encounter for preprocedural laboratory examination

== ENCOUNTER 2018-11-16 23:45 | Emergency (ER) | payer MEDICAID ==
[~2018-11-16] VITALS: Ht 170.2 cm; Wt 120.2 kg
[2018-11-16 23:52] VITALS: Ht 170.2 cm; Wt 120.2 kg
[2018-11-17 00:39] LABS: BASOPHILS 0.3 % (0-2); EOSINOPHILS 7.4 % (0-7); HEMATOCRIT 39.3 % (42.0-54.0); HEMOGLOBIN 14.3 g/dL (13.5-17.5); IMMATURE GRANULOCYTES 1.1 % (0-5); LYMPHOCYTES 28.6 % (15-50); MCH 30.6 pg (26.0-34.0); MCHC 36.4 g/dL (31.0-37.0); MEAN PLATELET VOLUME 9.1 fL (7.4-10.4); MONOCYTES 9.6 % (2-11); PLATELET COUNT 113 10x3/uL (130-400); RBC 4.68 10x6/uL (4.20-6.10); RDW 14.1 % (11.5-14.5); WBC 6.5 10x3/uL (4.8-10.8)
[2018-11-17 00:53] LABS: ALBUMIN 3.5 g/dL (3.4-5.0); ANION GAP 10.2 mmol/L (8-16); BILIRUBIN - TOTAL 0.56 mg/dL (0.2-1.3); CALCIUM 8.4 mg/dL (8.5-10.1); CARBON DIOXIDE 26.9 mmol/L (21.0-32.0); CREATININE - SERUM 1.3 mg/dL (0.6-1.3); POTASSIUM - SERUM 3.1 mmol/L (3.5-5.1); PROTEIN - SERUM 6.2 g/dL (6.4-8.2)
[2018-11-17] MEDS ORDERED: DOXYCYCLINE HY100 M2 PO (01:16)
[2018-11-17] MEDS ORDERED: AMBIEN10 MG PO (01:19)
[2018-11-17 01:30] VITALS: BP 165/90
== END 2018-11-17 01:31 | disposition home or self-care (01) ==
LOC: D.ER 23:45
PROVIDERS: Emergency Medicine
DX: M79.18 Myalgia, other site (principal); E87.6 Hypokalemia

== ENCOUNTER 2019-01-09 21:50 | Observation (INO) | payer MEDICAID ==
[~2019-01-09] VITALS: Ht 170.2 cm; Wt 120.5 kg
[~2019-01-09 21:50] MED LIST changes: +AMBIEN10 MG PO; -COCHICINE; +COCHICINE PO; +DOXYCYCLINE HY100 M2 PO
[2019-01-09 22:20] LABS: BASOPHILS 0.3 % (0-2); EOSINOPHILS 5.2 % (0-7); HEMATOCRIT 39.3 % (42.0-54.0); HEMOGLOBIN 14.2 g/dL (13.5-17.5); IMMATURE GRANULOCYTES 1.6 % (0-5); LYMPHOCYTES 23.3 % (15-50); MCH 31.1 pg (26.0-34.0); MCHC 36.1 g/dL (31.0-37.0); MCV 86.2 fL (80.0-100.0); MEAN PLATELET VOLUME 9.2 fL (7.4-10.4); MONOCYTES 7.3 % (2-11); NEUTROPHILS 62.3 % (40-80); PLATELET COUNT 114 10x3/uL (130-400); RBC 4.56 10x6/uL (4.20-6.10); RDW 14.2 % (11.5-14.5); WBC 6.7 10x3/uL (4.8-10.8)
[2019-01-09 22:32] LABS: APTT 26.6 SECONDS (22.8-39.4); INR 0.99 (0.85-1.17); PROTIME 12.6 SECONDS (11.6-15.0)
[2019-01-09 22:33] LABS: ALBUMIN 3.8 g/dL (3.4-5.0); ANION GAP 14.8 mmol/L (8-16); BILIRUBIN - TOTAL 1.2 mg/dL (0.2-1.3); CALCIUM 8.2 mg/dL (8.5-10.1); CREATININE - SERUM 1.2 mg/dL (0.6-1.3); POTASSIUM - SERUM 3.8 mmol/L (3.5-5.1); PROTEIN - SERUM 6.8 g/dL (6.4-8.2)
[2019-01-09 22:40] LABS: TROPONIN-I 0.016 ng/mL (0.000-0.060)
[2019-01-09] MEDS ORDERED: LISINOPRIL20 MG PO (23:22)
[2019-01-09] MEDS ORDERED: NEURONTIN600 MG PO (23:22)
[2019-01-09] MEDS ORDERED: TRAZODONE HCL150 MG PO (23:22)
[2019-01-09 23:37] VITALS: BP 158/84; BMI 41.6
[2019-01-10 04:00] VITALS: BP 133/79
--- NOTE | 2019-01-10 07:15 | NUR ---
RECEIVED PT IN BED AAOX4 RESP UNLABORED SKIN W/D COLOR WNL DENIES ANY NEEDS OR DISCOMFORT AT THIS TIME
[2019-01-10 09:35] VITALS: BP 128/77
[2019-01-10 09:37] VITALS: Ht 170.2 cm; Wt 120.5 kg
--- NOTE | 2019-01-10 11:20 | NUR ---
REVIEWED DISCHARGE INSTRUCTIONS WITH PT STATES UNDERSTANDING COPY GIVEN DCD SALINE LOCK WITH IV CATHETER INTACT SITE FREE OF REDNESS OR EDEMA PT DISCHARGED HOME LEFT UNIT VIA W/C IN STABLE CONDITION WITH ALL PERSONAL BELONGINGS
--- NOTE | 2019-01-12 07:48 | MORECARE ---
CASE MANAGEMENT DISCHARGE SUMMARY PATIENT: ALTON PARKS UNIT: [id number] ADM DATE: 01/09/19 AGE: 58 : 58 SEX: M ROOM/BED: D.2115 AUTHOR: JOSELUIS STAFFORD PHYSICIAN: REFERRING PHYSICIAN: NANCY DE LEÓN MD DATE OF SERVICE: 01/12/19 Discharge Plan Patient Name: ALTON PARKS Facility: [facility]:[place] : 1960 Planned Disposition: Home Anticipated Discharge Date: 01/10/19 Discharge Date: 01/10/2019 Expected LOS: 1 Initial Reviewer: [email or web address] Initial Review Date: 01/12/2019 Generated: 01/12/19 8:48 am Patient Name: ALTON PARKS Page [phone] at 0748 All edits/amendments must be made on the electronic document DICTATION DATE: 01/12/1949 BONE GLUE MAKER: NOAH 01/12/19 0748 RPT#: [id number] DC DATE:01/10/19 STATUS: DIS IN [facility] [address] [place] [address] END OF REPORT
--- NOTE | 2019-01-14 14:31 | HP ---
PATIENT: ALTON PARKS MEDICAL RECORD: [id number] ACCOUNT: [id number] LOCATION:[facility].2115 : 58 ADMISSION DATE: 01/09/19 PCP: ROGER KHALIL MD HISTORY AND PHYSICAL EXAMINATION ADMITTING DIAGNOSES: 1. Chest pain. 2. Coronary artery disease. 3. Previous multivessel PTCA and stent. 4. Hypertension. 5. Hyperlipidemia. HISTORY OF PRESENT ILLNESS: Mr. Parks presents with ongoing chest discomfort. It is not like that of his previous angina. Last cardiac intervention was in June. He had a rotator cuff tear on the right. He has been going to physical therapy. Physical therapy changed over the last 2 days with strength training of his chest. His chest discomfort is sharp, positional, sometimes centered on the right pectoral area, sometimes centered on the left pectoral area. He was unsure if this was cardiac. His troponins are normal. His EKG is with no changes. He continues to have the chest discomfort and it is definitely positional. PHYSICAL EXAMINATION: CONSTITUTIONAL/GENERAL APPEARANCE: Well nourished, well developed, appears stated age. EYES: Lids and conjunctivae noninjected. No discharge. No pallor. ENT: Lips within normal limit. No cyanosis. No pallor. NECK: Carotid arteries, bilateral normal upstroke. No bruits. No thrills. No jugular venous pressure or distention. CERVICAL LYMPH NODES: Nontender. Nonenlarged. THYROID: Not enlarged. No nodules. CARDIOVASCULAR: Precordial exam, nondisplaced. No heaves or pericardial thrills. Rate and rhythm, regular. Heart sounds, normal S1, normal S2. No S3, no gallop, no rub. Systolic murmur, not heard. Diastolic murmur, not heard. RESPIRATORY: Respiratory effort, unlabored. Normal curvature. No thoracic deformity. No chest wall tenderness. Percussion, resonant. Auscultation, clear. No wheezes, no rales, no rhonchi. ABDOMEN: Soft, nondistended, nontender. No abdominal pain, no vomiting and normal appetite. MUSCULOSKELETAL: No joint tenderness, normal gait, normal tone. SKIN: Warm and dry. OVERALL IMPRESSION: Chest discomfort, musculoskeletal in nature, nonanginal. At this time, no other cardiac workup or treatment is necessary. TRANSINT:[id number] Voice Confirmation ID: [id number] DOCUMENT ID: [id number] HISTORY AND PHYSICAL [id number] ALTON PARKS JEFFREY MD at 1431 CC: [id number] DICTATION DATE: 01/10/19 1134 AUTO ELECTRICAL TECHNICIAN: 01/10/19 1143 DIS IN 01/10/19 [facility] [address] [facility]
--- NOTE | 2019-01-14 14:32 | DS ---
PATIENT:ALTON PARKS :58 MEDICAL RECORD: [id number] DISCHARGE SUMMARY ADMISSION DATE: 01/09/19 DISCHARGE DATE: 01/10/19 DATE OF DISCHARGE: 01/10/2019 DISCHARGE DIAGNOSES: 1. Chest discomfort, musculoskeletal. 2. Coronary artery disease. 3. Previous percutaneous transluminal coronary angioplasty and stent. 4. Hypertension. 5. Hyperlipidemia. HOSPITAL COURSE: Mr. Parks presents with chest discomfort that is nonanginal and musculoskeletal in nature. Troponins were normal. EKGs were normal. Discharged home with no change in his medications. TRANSINT:[id number] Voice Confirmation ID: [id number] DOCUMENT ID: [id number] NANCY DE LEÓN MD at 1432 CC: [id number] DICTATION DATE: 01/10/19 1134 URBAN ANTHROPOLOGIST: 01/10/19 2226 DIS IN 01/10/19 [facility] [address] [place] [address]
== END 2019-01-10 11:20 | disposition home or self-care (01) ==
LOC: D.ER 21:50 → OBSVTIME 22:44 → D.M2 22:44
PROVIDERS: Family Medicine; ADMIT Internal Medicine Interventional Cardiology; ATTEND Internal Medicine Interventional Cardiology
DX: R07.89 Other chest pain (principal); I25.10 Atherosclerotic heart disease of native coronary artery without angina pectoris; I10 Essential (primary) hypertension; E78.5 Hyperlipidemia, unspecified; Z95.5 Presence of coronary angioplasty implant and graft

== ENCOUNTER 2019-09-22 12:14 | Outpatient (CLI) | payer MEDICARE ==
[~2019-09-22] VITALS: Ht 170.2 cm; Wt 126.6 kg
--- NOTE | ~2019-09-22 | HEMODYNAMI ---
PATIENT:ALTON PARKS MEDICAL RECORD: [id number] : 58 LOCATION:[facility] ADMISSION DATE: 09/22/19 Generatedon:09/22/201915:58 Patient name: ALTON PARKS Patient #: [id number] SSN: : 1960 Date of study: 09/22/2019 Page: Of Hemodynamic Procedure Report Patient Data Patient Demographics Procedure consent was obtained First Name: ALTON Gender: Male Last Name: CHARYL : 1960 Patient #: [id number] Age: 59 year(s) Race: Unknown Additional ID: [id number] Contact details Address: [facility] [address] State: [place] City: [place] Zip code: [address] Past Medical History History of disease Date Diagnosis Comments CAD Allergies: No known allergies Admission Admission Data Admission Date: 09/22/2019 Admission Time: 12:14 Arrival Date: 09/22/2019 Arrival Time: 0:00 Admit Source: Other Insurance Payor: Medicare [facility] #: [id number] Height (in.): 66.93 BSA: 2.33 (m2) Height (cm.): 170 BMI: 43.94 (kg/m2) Weight (lbs.): 279.99 Weight (kg.): 127 Lab Results Lab Result Date: 09/22/2019 Lab Result Time: 0:00 Biochemistry Name Units Result Min Max BUN mg/dl 23 --(----)-* 7 18 Creatinine mg/dl 1.3 --(---*)-- 0.6 1.3 eGFR ml/min 60 *-(----)-- 90 120 NONAFRICAN CBC Name Units Result Min Max Hematocrit % 45.3 --(-*--)-- 42 54 Hemoglobin g/dl 15.7 --(--*-)-- 13.5 17.5 Procedure Procedure Types Cath Procedure Diagnostic Procedure LHC [facility] w/Coronaries FFR/IVUS FFR Initial Sedation Charges Moderate Sedation up to 45 minutes PCI Procedure Coronary Stent Coronary Stent Initial Hemochron ACT Test Procedure Description Procedure Date Procedure Date: 09/22/2019 Procedure Start Time: 14:28 Procedure End Time: 15:32 Procedure Staff Name Function Ricardo Ramires MD Performing Physician Zia Peralta RT Monitor Олег Diane RN Nurse Fara Gilbert RT Scrub Procedure Data Cath Procedure Fluoroscopy Diagnostic fluoroscopy Total fluoroscopy Time: time: 19.1 min 19.1 min Diagnostic fluoroscopy Total fluoroscopy dose: dose: 4100 mGy 4100 mGy Contrast Material Contrast Material Type Amount (ml) Isovue 300 226 Entry Location Entry Primary Successful Side Size Upsize Upsize Entry Closure Succes sful Closure Location (Fr) 1 (Fr) 2 (Fr) Remarks Device Remarks Femoral Right 5 Fr 6 Fr Exoseal artery Short Estimated blood loss: 10 ml Diagnostic catheters Device Type Used For End Catheter Placement MULTIPACK JL 4.0 5Fr Procedure catheter MULTIPACK 3DRC 5Fr Procedure catheter MULTIPACK Pigtail 5 Fr Procedure catheter Procedure Complications No complications Procedure Medications Medication Administration Route Dosage 0.9% NaCl I.V. 100 ml/hr Oxygen etCO2 Nasal cannula 2 l/min Heparin Flush Bag added to field 2 bags (1000units/500ml NS) Lidocaine 2% added to field 20 Versed I.V. 1 mg Fentanyl I.V. 50 mcg Versed I.V. 1 mg Fentanyl I.V. 50 mcg Versed I.V. 1 mg Heparin Bolus I.V. 2000 units Lopressor I.V. 5 mg Heparin Bolus I.V. 3000 units Versed I.V. 1 mg Nitroglycerin IC/IA I.C. 200 mcg Vasotec I.V. 2.5 mg Fentanyl I.V. 100 mcg Lopressor I.V. 5 mg Clonidine P.O. 0.1 mg Hemodynamics Rest BSA: 2.33 (m2) HGB: 15.7 (g/dl) O2 Consumption: Estimated: 279.39 (ml/min) O2 Co nsumption indexed: Estimated:119.91 (ml/min/m) Heart Rate: 76 (bpm) Pressure Samples Time Site Value (mmHg) Purpose Heart Use Rate(bpm) 14:37 LV 87/-30,6 Snapshot 65 14:37 LV 146/3,7 Snapshot 74 Gradients Valve Time Site Site Mean SEP/DFP Peak To Heart Use 1 2 (mmHg) (sec/min) Peak Rate (mmHg) (bpm) Aortic 14:37 LV AO 59 Snapshots Pre Cath Intra NCS Post Cath Vital Signs Time Heart Resp SPO2 etCO2 NIBP (mmHg) Rhythm Pain Sedation Rate (ipm) (%) (mmHg) Status Level (bpm) 14:13:17 72 13 97 29.8 187/109(159) NSR 0 (11) 10(A) , No pain 14:17:45 70 17 98 35.8 166/105(151) NSR 0 (11) 10(A) , No pain 14:22:11 66 18 97 32.8 165/107(146) NSR 0 (11) 10(A) , No pain 14:26:33 68 17 96 35.8 161/92(136) NSR 0 (11) 10(A) , No pain 14:30:58 71 10 98 35.1 157/114(146) NSR 0 (11) 10(A) , No pain 14:35:20 71 33 93 30.6 152/105(126) NSR 0 (11) 10(A) , No pain 14:39:40 78 24 96 17.9 158/99(119) NSR 0 (11) 10(A) , No pain 14:44:00 71 17 96 29.8 161/105(130) NSR 0 (11) 10(A) , No pain 14:48:18 67 18 95 27.6 156/97(138) NSR 0 (11) 10(A) , No pain 14:52:36 60 23 94 27.6 149/97(132) NSR 0 (11) 9(A) , No pain 14:56:56 63 21 97 16.4 157/104(138) NSR 0 (11) 9(A) , No pain 15:01:18 61 30 98 25.3 172/101(131) NSR 0 (11) 9(A) , No pain 15:07:09 61 23 96 30.6 175/105(141) NSR 0 (11) 9(A) , No pain 15:11:39 60 19 98 29.1 178/108(140) NSR 0 (11) 9(A) , No pain 15:16:03 61 17 97 33.6 167/103(161) NSR 0 (11) 9(A) , No pain 15:20:32 66 16 98 32.8 184/109(156) NSR 0 (11) 10(A) , No pain 15:25:06 72 19 97 31.3 191/124(162) NSR 0 (11) 10(A) , No pain 15:30:05 77 11 96 26.8 Measuring NSR 0 (11) 9(A) , No pain 15:31:21 81 8 97 32.8 225/125(190) NSR 0 (11) 9(A) , No pain 15:44:00 83 17 97 15.6 202/133(183) NSR 0 (11) 9(A) , No pain 15:54:56 71 11 94 26.8 199/118(175) NSR 0 (11) 9(A) , No pain Medications Time Medication Route Dose Verified Delivered Reason Notes Effectiveness by by 14:11:54 0.9% NaCl I.V. 100 Олег Олег Per physician ml/hr Benedicto Diane RN RN 14:12:03 Oxygen etCO2 2 Олег Олег for low 02 sats Nasal l/min Benedicto Diane cannula RN RN 14:12:24 Heparin Flush added 2 Олег Олег for low 02 sats Bag to bags Bneedicto Diane (1000units/500ml field RN RN NS) 14:12:38 Lidocaine 2% added 20ml Олег Олег for local to vial Lorallison Winchesterigan anesthetic field RN RN 14:25:45 Versed I.V. 1 mg Олег Олег for sedation Benedicto Diane RN RN 14:25:56 Fentanyl I.V. 50 Олег Олег for sedation mcg Benedicto Diane RN RN 14:28:31 Versed I.V. 1 mg Олег Олег for sedation Benedicto Diane RN RN 14:28:39 Fentanyl I.V. 50 Олег Олег for sedation mcg Benedicto Diane RN RN 14:32:35 Versed I.V. 1 mg Олег Олег for sedation Benedicto Diane RN RN 14:42:50 Heparin Bolus I.V. 2,000 Олег Олег for units Lorigan Benedicto anticoagulation RN RN 14:47:48 Lopressor I.V. 5 mg Олег Олег for Lorigan Lorallison hypertension RN RN 14:55:54 Heparin Bolus I.V. 3,000 Олег Олег for units Lorallison Benedicto anticoagulation RN RN 15:18:26 Versed I.V. 1 mg Олег Олег for sedation Benedicto Diane RN RN 15:23:32 Nitroglycerin I.C. 200 Олег Silva for IC/IA mcg Lorigan Ike vasodilation LEX MACKENZIE 15:28:33 Vasotec I.V. 2.5 Олег Олег for mg Lorigan Benedicto hypertension RN RN 15:28:50 Fentanyl I.V. 100 Олег Олег for sedation mcg Lorigan Benedicto RN RN 15:52:25 Lopressor I.V. 5 mg Олег Олег for Lorigan Lorigan hypertension RN RN 15:52:36 Clonidine P.O. 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 13:46:08 Time tracking: Regular hours (M-F 7:00 - 5:00) 13:46:11 Plan of Care:Hemodynamics will remain stable., Cardiac rhythm will remain stable., Comfort level will be maintained., Respiratory function will remain adequate., Patient/ family verbilizes understanding of procedure., Procedure tolerated without complication., Recovers from procedure without complications.. 13:46:13 Олег Diane RN sent for patient. Start room use. 13:47:33 H&P Date Dictated: 09/16/2019 Within 30 days and on chart., H&P Addendum completed by physician on day of procedure. (MUST COMPLETE FOR ALL OUTPATIENTS). 13:47:43 Patient allergic to No known allergies 13:57:26 Patient Weight : 279.99 lbs 13:57:30 Patient Height : 66.93 inches 13:57:34 Arrival Date: 09/22/2019 12:00:00 AM 13:59:36 Lab Result : Hemoglobin 15.7 g/dl 13:59:36 Lab Result : Hematocrit 45.3 % 13:59:36 Lab Result : eGFR NONAFRICAN 60 ml/min 13:59:36 Lab Result : BUN 23 mg/dl 13:59:36 Lab Result : Creatinine 1.3 mg/dl 14:00:07 Patient received from Pre/Post Procedure Room to CCL 2 Alert and oriented. Tansferred to table in Supine position. 14:00:08 Warm blankets applied, and avila hugger turned on for patient comfort. 14:00:09 ECG and BP/O2 sat monitors applied to patient. 14:00:09 Correct patient and procedure confirmed by team. 14:11:54 0.9% NaCl 100 ml/hr I.V. was administered by Олег Diane RN; Per physician; Verbal order read back and verified. 14:11:57 Vital chart was started 14:12:00 Baseline sample Acquired. 14:12:03 Oxygen 2 l/min etCO2 Nasal cannula was administered by Олег Diane RN; for low 02 sats; Verbal order read back and verified. 14:12:06 Rhythm: sinus rhythm 14:12:07 Full Disclosure recording started 14:12:20 Pre-op teaching completed and patient verbalized understanding. 14:12:20 Pre-procedure instructions explained to patient. 14:12:24 Family unavailable. 14:12:24 Heparin Flush Bag (1000units/500ml NS) 2 bags added to field was administered by Олег Diane RN; for low 02 sats; Verbal order read back and verified. 14:12:26 Patient NPO since Breakfast. 14:12:27 Is the patient allergic to Iodine/contrast media? No. 14:12:28 Is patient on blood thinner?Yes 14:12:31 ACC The patient was administered the following blood thiners within the last 24 hours: ACCAspirin, ACCPlavix 14:12:35 Previous problem with sedation/anesthesia? No ? 14:12:36 Snore? Yes 14:12:37 Sleep apnea? No 14:12:38 Opens mouth fully? Yes 14:12:38 Deviated septum? No 14:12:38 Lidocaine 2% 20ml vial added to field was administered by Олег Diane RN; for local anesthetic; Verbal order read back and verified. 14:12:39 Sticks out tongue? Yes 14:12:40 Airway obstruction? No ? 14:12:43 Dentures? No ? 14:12:45 Pre procedure: right dorsailis pedis pulse 2+ Normal; easily identifiable; not easily obliterated 14:12:46 Patient pain scale 0/10 ?. 14:12:52 IV patent on arrival in left forearm with 0.9% NaCl at [facility]. 14:12:54 Lab results completed and on chart. 14:16:54 Insurance Payor : Medicare 14:17:13 Admit Source: Other 14:19:12 Diagnostic Cath Status : Elective 14:19:26 Risk of Mortality: 0.1% 14:19:31 Risk of blood transfusion: 0.6% 14:19:36 Risk of LUIS: 0.8% 14:19:39 Alarms reviewed by R. N. 14:19:39 Right groin area was prepped with chlora-prep and draped in sterile fashion 14:19:40 Sharps counted by scrub and verified by R.N. 14:19:42 Use device set Femoral Dx 14:19:43 Bag Decanter (2002S) opened to sterile field. 14:19:43 ACIST Syringe (73493) opened to sterile field. 14:19:44 Medline Cath Pack ([id number]) opened to sterile field. 14:19:45 DIAGNOSTIC Multipack 5Fr catheter set (VI6440) opened to sterile field. 14:19:45 ACIST Manifold (27983) opened to sterile field. 14:19:45 ACIST Hand Control (83432) opened to sterile field. 14:19:46 Tegaderm 4 x 4 (1626W) opened to sterile field. 14:19:47 EMERALD Guide Wire (956-445) opened to sterile field. 14:19:48 SHEATH 5FR Mesa (IHP807) opened to sterile field. 14:21:14 Zero performed for pressure channel P1 14:25:19 --------ALL STOP TIME OUT------ 14:25:19 Physician arrived 14:25:20 Final Timeout: patient, procedure, and site verified with staff and physician. All members of the team are in agreement. 14:25:21 Right groin site verified by team. 14:25:25 Fire Safety Assessment: A--An alcohol-based skin anteseptic being used preoperatively., C--Open oxygen or nitrous oxide is being used., D--An ESU, laser, or fiber-optic light is being used. 14:25:27 Physical assessment completed. ASA score P 2 - A patient with mild systemic disease as per Ricardo Ramires MD. 14:25:45 Versed 1 mg I.V. was administered by Олег Diane RN; for sedation; Verbal order read back and verified. 14:25:54 2) 60-89 Mildly reduced kidney function, and other findings (as for stage 1) point to kidney disease. 14:25:56 Fentanyl 50 mcg I.V. was administered by Олег Diane RN; for sedation; Verbal order read back and verified. 14:26:09 Maximum allowable contrast dose (3.7 X eGFR X 0.75)166 ml. 14:26:15 Sedation plan: IV Moderate Sedation Medication:Versed, Fentanyl 14:28:07 Procedure started. 14:28:10 Local anesthetic to right femoral artery with Lidocaine 2% by Ricardo Ramires MD.INITIAL ACCESS ONLY 14:28:31 Versed 1 mg I.V. was administered by Олег Diane RN; for sedation; Verbal order read back and verified. 14:28:39 Fentanyl 50 mcg I.V. was administered by Олег Diane RN; for sedation; Verbal order read back and verified. 14:32:34 A 5 Fr sheath was inserted into the Right Femoral artery 14:32:35 Versed 1 mg I.V. was administered by Олег Diane RN; for sedation; Verbal order read back and verified. 14:32:47 A MULTIPACK JL 4.0 5Fr catheter was advanced over the wire and used for Procedure. 14:33:52 LCA angiography performed. 14:35:32 Catheter exchanged over wire. 14:35:36 A MULTIPACK 3DRC 5Fr catheter was advanced over the wire and used for Procedure. 14:36:16 RCA angiography performed. 14:36:33 Catheter exchanged over wire. 14:36:37 A MULTIPACK Pigtail 5 Fr catheter was advanced over the wire and used for Procedure. 14:37:22 LV gram done using BOBO 14:37:24 Injector settings: Ml/sec: 10, Volume: 20, 14:37:26 LV hemodynamics recorded. 14:37:45 EF : 55 % 14:38:08 INFLATOR Merit BasixCompak (QK4797) opened to sterile field. 14:38:09 SHEATH 6FR [place] (CXW146) opened to sterile field. 14:38:09 GUIDE 6FR EBU 3.5 catheter ([id number]) opened to sterile field. 14:40:12 WHISPER 300cm guide wire ([id number]) opened to sterile field. 14:40:17 Catheter removed. 14:40:22 Sheath upsized to a 6 Fr Short. 14:40:38 6 Fr EBU 3.5 guide catheter was inserted over the wire 14:42:03 [place] Verrata Plus pressure wire (21707G) opened to sterile field. 14:42:26 FFR/IFR wire advanced. 14:42:50 Heparin Bolus 2,000 units I.V. was administered by Олег Diane RN; for anticoagulation; Verbal order read back and verified. 14:44:43 Wire advanced across lesion. 14:47:48 Lopressor 5 mg I.V. was administered by лОег Diane RN; for hypertension; Verbal order read back and verified. 14:52:59 pCirc lesion measured at 0.71 with IFR 14:53:11 Wire removed. 14:53:13 Guide catheter removed. 14:53:27 GUIDE 6FR EBU 4.0 guide catheter ([id number]) opened to sterile field. 14:53:37 6 Fr EBU 4.0 guide catheter was inserted over the wire 14:53:53 Guide catheter removed. 14:54:15 GUIDE 6FR JL 5.0 catheter (DR1OT15) opened to sterile field. 14:54:17 6 Fr JL 5 guide catheter was inserted over the wire 14:55:54 Heparin Bolus 3,000 units I.V. was administered by Олег Diane RN; for anticoagulation; Verbal order read back and verified. 14:56:47 WHISPER wire advanced. 14:58:59 Wire advanced across lesion. 14:59:01 The TANMAY OTW 3.0 x 18 stent ([id number]) was advanced then removed because of failure to cross lesion 14:59:08 Pre PCI Site: [place] pCirc has 80% stenosis. 14:59:11 ACC Pre-intervention CHRISTELLE Flow is 3. 15:01:57 Wire removed. 15:01:59 Guide catheter removed. 15:04:01 GUIDE 6FR AL 1.0 catheter ([id number]) opened to sterile field. 15:04:13 6 Fr AL 1 guide catheter was inserted over the wire 15:07:34 WHISPER wire advanced. 15:08:19 The EMERGE OTW 3.0 x 15 balloon ([id number]) was advanced and then removed because of failure to cross lesion 15:09:44 Wire removed. 15:09:47 Guide catheter removed. 15:11:50 GUIDE 6FR XBLAD 4.0 catheter ([id number]) opened to sterile field. 15:12:01 6 Fr XBLAD 4 guide catheter was inserted over the wire 15:12:06 WHISPER wire advanced. 15:14:20 Wire removed. 15:14:28 BMW 300cm [place] 2 J wire ([id number]) opened to sterile field. 15:14:34 BMW wire advanced. 15:16:13 Wire advanced across lesion. 15:16:26 Inflate balloon Inflation number: 1 A EMERGE OTW 3.0 x 15 balloon ([id number]) was prepped and advanced across the Mid CX -1, then inflated to 0 KAMERON for 0:00 (min:sec) -1. 15:16:41 CHOICE PT Extra Support J 300cm guide wire ([id number]) opened to sterile field. 15:17:10 BMW WIRE EXCHANGED FOR CHOICE PT ES. 15:17:35 Inflation number: 2 The EMERGE OTW 3.0 x 15 balloon ([id number]) was reinflated across the Mid CX , to 8 KAMERON for 0:30 (min:sec) . 15:17:59 Inflation number: 3 The EMERGE OTW 3.0 x 15 balloon ([id number]) was reinflated across the Mid CX , to 10 KAMERON for 0:30 (min:sec) . 15:18:08 Inflation number: 4 The EMERGE OTW 3.0 x 15 balloon ([id number]) was reinflated across the Mid CX , to 12 KAMERON for 0:30 (min:sec) . 15:18:26 Versed 1 mg I.V. was administered by Олег Diane RN; for sedation; Verbal order read back and verified. 15:19:47 Balloon removed over the wire. 15:21:20 Place stent Inflation Number: 5 A TANMAY OTW 3.0 x 18 stent ([id number]) was prepped and advanced across the Mid CX . The stent was deployed at 14 KAMERON for 0:45 (min:sec) . 15:23:32 Nitroglycerin IC/IA 200 mcg I.C. was administered by Ricardo Ramires MD; for vasodilation; Verbal order read back and verified. 15::37 Stent catheter was removed intact over wire. 15::38 Wire removed. 15::39 Guide catheter removed. 15::43 EXOSEAL 6Fr (EX600) opened to sterile field. 15::51 Sheath removed intact; hemostasis achieved with Exoseal to the Right Femoral artery. 15::52 Procedure ended.(Physican Out) 15:: Fluoroscopy time 19.10 minutes. 15:: Fluoroscopy dose: 4100 mGy 15:: Flurop Dose total: 4100 15:: Dose Area Product 917770 mGy/cm. 15::33 Vasotec 2.5 mg I.V. was administered by Олег Diane RN; for hypertension; Verbal order read back and verified. 15::34 Contrast amount:Isovue 300 226ml. 15::43 Maximum allowable dose exceeded? Yes. 15::50 Sharps counted by scrub and verified by R.N. 15::50 Fentanyl 100 mcg I.V. was administered by Олег Diane RN; for sedation; Verbal order read back and verified. 15:28:57 Insertion/operative site no bleeding no hematoma. 15:29:00 Post-op/insertion site Right Femoral artery dressed using a 4 x 4 and Tegaderm. 15:29:03 Post right femoral artery:stable, soft, clean and dry 15:29:04 Post Procedure Pulses reassessed and unchanged 15:29:06 Post-procedure physical assessment completed. ASA score P 2 - A patient with mild systemic disease as per Ricardo Ramires MD. 15:29:08 Post procedure rhythm: unchanged. 15:29:13 Estimated blood loss: 10 ml 15:29:14 Patient needs reinforcement of post procedure teaching. 15:29:14 Post procedure instruction explained to patient.Patient verbalizes understanding. 15:29:50 Procedure type changed to Cath procedure, Diagnostic procedure, LHC, LHC w/Coronaries, FFR/IVUS, FFR Initial, Sedation Charges, Moderate Sedation up to 45 minutes, PCI procedure, Coronary Stent, Coronary Stent Initial, Hemochron ACT Test 15:30:08 ACT drawn and resulted at 220 seconds. (normal therapeutic range 180-240 seconds). 15:32:16 Procedure and supply charges have been captured, reviewed, submitted and are correct. 15:32:18 Procedure Complication : No complications 15:32:21 Vital chart was stopped 15:32:36 [facility] Findings: MVD- PCI performed (see procedure note) 15:32:37 See physician's report for complete and final results. 15:32:37 Operative report dictated upon procedure completion. 15:32:39 Report given to Pre/Post Procedure Room. 15:32:41 Patient transfered to Pre/Post Procedure Room with Stretcher. 15:32:43 Full Disclosure recording stopped 15:32:43 Procedure ended. 15:32:51 End room use (Document Last) 15:52:25 Lopressor 5 mg I.V. was administered by Олег Diane RN; for hypertension; Verbal order read back and verified. 15:52:36 Clonidine 0.1 mg P.O. was administered by Олег Diane RN; for hypertension; Verbal order read back and verified. Intervention Summary Intervention Notes Time ActionType Lesion and Equipment Action# Pressure Duration Attributes Used 14:59:01 Discard TANMAY OTW 3.0 Stent x 18 stent ([id number]) 15:08:19 Discard EMERGE OTW Balloon 3.0 x 15 balloon ([id number]) 15:16:26 Inflate Mid CX EMERGE OTW 1 0 00:00 balloon 3.0 x 15 balloon ([id number]) 15:17:35 Reinflate Mid CX EMERGE OTW 2 8 00:30 balloon 3.0 x 15 balloon ([id number]) 15:17:59 Reinflate Mid CX EMERGE OTW 3 10 00:30 balloon 3.0 x 15 balloon ([id number]) 15:18:08 Reinflate Mid CX EMERGE OTW 4 12 00:30 balloon 3.0 x 15 balloon ([id number]) 15:21:20 Place stent Mid CX TANMAY OTW 3.0 5 14 00:45 x 18 stent ([id number]) Device Usage Item Name Manufacture Quantity Catalog Number Hospital Part Current Minimal Lot# / Charge Number Stock Stock Serial# Code ACIST Syringe Acist 1 52816 839574 224604 578024 20 (42531) GetFeedback Bag Decanter Microtek 1 896846 44021 859088 5 (2001S) Medical Inc. Medline Cath Medline 1 [id number] 107204 77305 560999 5 Pack ([id number]) ACIST Hand Acist 1 16776 710222 617342 066941 5 Control Medical (38864) Systems Inc ACIST Acist 1 58165 375890 220579 387349 5 Manifold Medical (80635) Systems Inc DIAGNOSTIC Cardinal 1 PD3021 065889 50973 961922 30 Multipack 5Fr Health catheter set (EH7682) Tegaderm 4 x 3M 1 1626W 325744 631216 884096 5 4 (1626W) EMERALD Guide Cardinal 1 502-455 679270 301661 986677 5 Wire Health (502-455) SHEATH 5FR Terumo 1 DLW387 359880 574052 954176 5 [place] (WEY683) MULTIPACK JL Cardinal 1 323423 5 4.0 5Fr Health catheter MULTIPACK Cardinal 1 958164 5 3DRC 5Fr Health catheter MULTIPACK Cardinal 1 201497 5 Pigtail 5 Fr Health catheter INFLATOR Innovate2 1 CG2331 640418 124698 102419 15 Uniplaces BasixCompak (UH0836) GUIDE 6FR EBU Medtronic 1 [id number] 816561 23244 370098 3 3.5 catheter ([id number]) SHEATH 6FR Terumo 1 NXV020 195274 464235 321154 40 [place] (WEK721) WHISPER 300cm [place]a 1 [id number] 996888 352826 680112 5 guide wire Vascular (8309414KY) [place] 1 27580K 270530 558455288 757004 5 Verrata Plus pressure wire (14952B) GUIDE 6FR EBU Medtronic 1 SC5VBI57 948163 23888 183024 1 4.0 guide catheter (NB5TSJ65) GUIDE 6FR AL Medtronic 1 LA2QO68 676169 82786 785146 1 1.0 catheter (UR6IL91) EMERGE OTW [place] 1 [id number] 422647 860072 568834 5 [id number] 3.0 x 15 Scientific balloon ([id number]) TANMAY OTW 3.0 Medtronic 1 [id number] 303067 0615004 805666 5 [id number] x 18 stent ([id number]) GUIDE 6FR Cardinal 1 [id number] 198009 099804 652815 3 XBLAD 4.0 Health catheter (93179422) BMW 300cm [place] 1 [id number] 103426 854076 454032 5 [place] 2 J Vascular wire (6990873Z) CHOICE PT [place] 1 [id number] 622926 550190 406538 5 Extra Support Scientific J 300cm guide wire ([id number]) EXOSEAL 6Fr Cardinal 1 EX600 815307 060385 614713 10 (EX600) Health GUIDE 6FR JL Medtronic 1 [id number] 188863 71089 012528 1 5.0 catheter (IN9BX68) Signature Audit Wheel[place] Stage Time Signature Unsigned Intra-Procedure 09/22/2019 Олег Peratla RT(R) 3:33:24 PM RN; Zia Peralta 09/22/2019 3:42:29 PM RT(R) Intra-Procedure 09/22/2019 Zia Peralta RT(R); Zia Peralta RT(R) 3:45:42 PM Ricardo Ramires MD 09/22/2019 3:50:11 PM Intra-Procedure 09/22/2019 Zia Peralta RT(R); 3:58:01 PM Ricardo Ramires MD Signatures Performing Physician : Ricardo Signature : [facility] MACKENZIE Date : Time : Monitor : Zia Peralta RT Signature : Date : Time : Nurse : Олег Diane RN Signature : Date : Time : [facility] [address] [place] [address]
[~2019-09-22 12:14] MED LIST changes: +LISINOPRIL20 MG PO; +NEURONTIN600 MG PO; +TRAZODONE HCL150 MG PO
[2019-09-22] MEDS ORDERED: PLAVIX75 MG PO (12:35)
[2019-09-22] MEDS ORDERED: NORVASC5 MG PO (12:37)
[2019-09-22 13:00] VITALS: BP 225/120; Ht 170.2 cm; Wt 126.6 kg
[2019-09-22 13:13] LABS: BASOPHILS 0.3 % (0-2); EOSINOPHILS 5.1 % (0-7); HEMATOCRIT 45.3 % (42.0-54.0); HEMOGLOBIN 15.7 g/dL (13.5-17.5); IMMATURE GRANULOCYTES 1.5 % (0-5); MCH 29.7 pg (26.0-34.0); MCHC 34.7 g/dL (31.0-37.0); MCV 85.8 fL (80.0-100.0); MEAN PLATELET VOLUME 9.1 fL (7.4-10.4); MONOCYTES 6.6 % (2-11); NEUTROPHILS 71.5 % (40-80); PLATELET COUNT 115 10x3/uL (130-400); RBC 5.28 10x6/uL (4.20-6.10); RDW 13.6 % (11.5-14.5); WBC 8.6 10x3/uL (4.8-10.8)
[2019-09-22 13:31] LABS: ANION GAP 14.7 mmol/L (8-16); CALCIUM 9.1 mg/dL (8.5-10.1); CARBON DIOXIDE 22.5 mmol/L (21.0-32.0); CHOL - HDL RATIO 5.1 ratio (2.3-4.9); CREATININE - SERUM 1.3 mg/dL (0.6-1.3); LDL-HDL RATIO 3.3 ratio (1.5-3.5); POTASSIUM - SERUM 4.2 mmol/L (3.5-5.1)
--- NOTE | 2019-09-22 16:05 | NUR ---
PT ARRIVED BY STRETCHER. PLACED ON MONITORS. ASSESSMENT COMPLETED. BP ELEVATED, THIS WAS ELEVATED IN BACK. PT HAS BEEN GIVEN MEDS TO TREAT. WILL MONITOR. CALL LIGHT WITHIN REACH.
[2019-09-22] MEDS ORDERED: RANEXA500 MG PO (16:18)
--- NOTE | 2019-09-22 16:20 | NUR ---
PT RESTING COMFORTABLY. VSS. RIGHT GROIN DRESSING C/D/I. NO S/S OF HEMATOMA NOTED. CALL LIGHT WITHIN REACH. NO NEEDS AT THIS TIME.
[2019-09-22] MEDS ORDERED: LIPITOR20 MG PO (16:50)
[2019-09-22] MEDS ORDERED: BAYER CHEWABLE81 MG PO (16:50)
--- NOTE | 2019-09-22 16:50 | NUR ---
PT C/O CHEST PAIN "BURNING". NO EKG CHANGES NOTED. DR. LEOS NOTIFIED. ORDERS RECEIVED FOR MORPHINE.
--- NOTE | 2019-09-22 17:06 | NUR ---
RIGHT GROIN DRESSING C/D/I. NO S/S OF HEMATOMA NOTED. CALL LIGHT WITHIN REACH. VSS AT THIS TIME. BP TRENDING DOWN. CURRENTLY 175/109. HR 65 NSR. PT'S AT BEDSIDE. MORPHINE GIVEN IV AND RANEXA PO GIVEN PER DR. CARRASCO ORDERS. PT TOLERATING SIPS OF WATER AT THIS TIME. DENIES NAUSEA. WILL CONTINUE TO MONITOR.
--- NOTE | 2019-09-22 17:28 | NUR ---
PT REPORTS CHEST PAIN IS IMPROVED. RATES IT A 2/10 AT THIS TIME. VSS. CALL LIGHT WITHIN REACH. AT BEDSIDE. NO NEEDS AT THIS TIME. RIGHT GROIN DRESSING C/D/I. NO S/S OF HEMATOMA NOTED.
--- NOTE | 2019-09-22 18:00 | NUR ---
PT RESTING COMFORTABLY. DENIES PAIN AT THIS TIME. CALL LIGHT WITHIN REACH. VSS. BP STABLE AT 147/83. RIGHT GROIN DRESSING C/D/I. NO S/S OF HEMATOMA NOTED.
--- NOTE | 2019-09-22 18:30 | NUR ---
RIGHT GROIN DRESSING C/D/I. NO S/S OF HEMATOMA NOTED. CALL LIGHT WITHIN REACH. HEAD OF BED INC TO 30 DEGREES. TOLERATED WELL. VSS AT THIS TIME. SET UP WITH SANDWICH TRAY AND DRINK. PT VOIDED APPROX 200cc OF YELLOW URINE IN URINAL WITHOUT DIFFICULTY.
--- NOTE | 2019-09-22 19:05 | NUR ---
PIV D/C'D WITH CATH TIP INTACT. TOLERATED WELL. RIGHT GROIN DRESSING C/D/I. NO S/S OF HEMATOMA NOTED. CALL LIGHT WITHIN REACH. VSS AT THIS TIME. DISCUSSED DISCHARGE INSTRUCTIONS WITH PT AND PT'S FAMILY. THEY VOICED UNDERSTANDING. PT INSTRUCTED TO GET UP AND DRESSED AT THIS TIME.
--- NOTE | 2019-09-22 19:20 | NUR ---
RIGHT GROIN DRESSING C/D/I. NO S/S OF HEMATOMA NOTED. PT TAKEN DOWN TO VEHICLE BY WHEELCHAIR. NO S/S OF DISTRESS NOTED. ALL BELONGINGS AND PAPERWORK IN HAND.
--- NOTE | 2019-09-24 08:04 | OP ---
PATIENT NAME: ALTON PARKS MEDICAL RECORD: [id number] :58 LOCATION:[facility] ADMISSION DATE: SURGEON: CHERI PAUL MD DATE OF OPERATION: 09/22/2019 PROCEDURE: Left heart catheterization, selective coronary angiography, right femoral artery approach. CATHETERS: A 5-Bur[place] sheath, 5/4 left and right Lyn, 5/4 pig. The procedure was well tolerated. We proceeded to do a PTCA stenting of the circumflex. The procedure was finished. FINDINGS: Left ventriculography in 30-degree BOBO view; normal wall motion, normal systolic function. CORONARY ANATOMY: LEFT MAIN: Left main is free of disease. LAD: LAD previously placed stent is widely patent without evidence of restenosis. CIRCUMFLEX: Circumflex has a distal area of approximately 80% stenosis. This is confirmed with IFR wire of 0.76. RIGHT CORONARY ARTERY: Previously placed stent is totally occluded. The distal right fills well via left to right and bridging collaterals. There does not appear to be a true lumen through the total occlusion. PLAN: Intervention to the circumflex momentarily. PROCEDURE: After trying a myriad guiding catheters, a XB LAD fair guide catheter support followed by a 300 cm wire placed across the tightly occluded circumflex distal portion of this vessel. I then placed a 3.0 balloon and inflated up and down the area of occlusion. I then using the balloon as an exchange catheter exchanged for a PT export wire and finally deployed a 3.0 x 18 mm Musa drug-eluting stent. There was some distal dissection. The CHRISTELLE flow 2-3 distally. 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 For medical management. The patient started on Ranexa 500 mg b.i.d. TRANSINT:[id number] Voice Confirmation ID: [id number] DOCUMENT ID: [id number] CHERI PAUL MD at 0804 CC: [id number] DICTATION DATE: 09/22/19 1616 MANAGER CULTURE: 09/23/19 0225 DEP CLI 09/22/19 [place] [address]
== END 2019-09-22 19:20 | disposition home or self-care (01) ==
LOC: D.CATH 12:14
PROVIDERS: ATTEND Internal Medicine Interventional Cardiology
DX: I25.119 Atherosclerotic heart disease of native coronary artery with unspecified angina pectoris (principal); I10 Essential (primary) hypertension; E78.5 Hyperlipidemia, unspecified; R94.31 Abnormal electrocardiogram [ECG] [EKG]
CPT/HCPCS: 93458; 93571; C9600

== ENCOUNTER → 2019-10-08 21:36 | Outpatient (CLI) | payer MEDICARE ==
[2019-09-22 13:00] VITALS: BMI 43.7
[~2019-10-08 21:36] MED LIST changes: +RANEXA500 MG PO
== END | disposition home or self-care (01) ==
LOC: D.LABREF 21:36
PROVIDERS: ATTEND Legal Medicine
DX: R60.0 Localized edema (principal); I51.9 Heart disease, unspecified

== ENCOUNTER → 2020-07-26 09:23 | Outpatient (CLI) | payer MEDICARE ==
[2020-06-13 13:08] VITALS: BMI 40.8
[~2020-07-26 09:23] MED LIST changes: +ISORDIL5 MG PO; +ISOSORBIDE MONO30 M1 PO
--- NOTE | 2020-07-27 10:02 | EC ---
PATIENT:ALTON PARKS DATE OF SERVICE: 07/26/20 SEX: M MEDICAL RECORD: [id number] DATE OF : 58 [facility] AGE [facility] PAT[facility]: 60 ADMISSION DATE: 07/26/20 REFERRING PHYSICIAN: INTERPRETING PHYSICIAN: CHERI PAUL MD ECHOCARDIOGRAM REPORT ECHO CHARGES 4 ECHO COMPLETE Date: 07/26/20 CLINICAL DIAGNOSIS: CAD/DYSPNEA, ASSESS EF ECHOCARDIOGRAPHIC MEASUREMENTS (adult normal given) AC root (d.<3.7cm) 4.2 cm LV Septum d (<1.2 cm> 1.8 cm Valve Excursion 1.9 cm LV Septum (systole) 2.0 cm Left Atria (s.<4.0cm> 3.4 cm LVPW d(<1.2cm) 1.7 cm RV (d.<2.3cm) 3.2 cm LVPW (sytole) 2.0 cm LV diastole(<5.6CM) 6.0 cm MV E-F(>70mm/sec) cm LV systole 3.4 cm LVOT Diameter 1.9 cm MV exc.(>10mm) 1.2 cm Est.ejection fraction (50-75%) % DOPPLER: LVIT cm/sec A 106.0cm/sec E 56.0 cm/sec LA cm/sec RVSP 17 mmHg LVOT 100 cm/sec AOP1/2T m/s Asc. Ao 126 cm/sec RVOT cm/sec RA cm/sec PA 133 cm/sec AV Gradient Peak 6.40 mmHg AV Mean 3.23 mmHg AV Area 2.3 cm MV Gradient Peak 8.81 mmHg MV Mean 2.86 mmHg MV Area cm COMMENTS: Bit Tripoler: 2 SHANTA FREED Cotton Opener: 3 Dr. Schultz TAPE# PACS Pericardial Effusion N DATE OF SERVICE: Adequate 2D, color flow imaging, spectral Doppler, and M-Mode. FINDINGS: LVH is present. LV internal dimension is normal. Wall motion is normal. EF is greater than or equal to 55%. Aortic valve is tricuspid. No evidence of stenosis by Doppler interrogation. Left atrium is normal at 3.4 cm. Mitral valve shows no prolapse. Trace MR. Right side is grossly normal. Trace TR. TRANSINT:[id number] Voice Confirmation ID: [id number] DOCUMENT ID: [id number] ECHOCARDIOGRAM REPORT [id number] ALTON PARKS GREGORY A MD at 1002 CC: [id number] DICTATION DATE: 07/26/20 1526 HAND ROUTER OPERATOR: 07/26/20 2259 DEP CLI 07/26/20 [place] [id number] [place] [id number]
== END | disposition home or self-care (01) ==
LOC: D.HCCECHO 09:23
PROVIDERS: ATTEND Internal Medicine Interventional Cardiology
DX: I25.10 Atherosclerotic heart disease of native coronary artery without angina pectoris (principal)